=== PATIENT | male | born 1950 | race Caucasian/White ===

== ENCOUNTER 2018-10-09 23:32 | Observation (INO) | payer BC ==
[2018-10-09] MEDS ORDERED: ONDANSETRON HCL IV 4 MG/2 ML VIAL IVP ONE (23:35)
[2018-10-09] MEDS ORDERED: MORPHINE SULFATE 5 MG/ML VIAL IVP ONE (23:39)
[2018-10-09] MEDS ORDERED: 0.9 % SODIUM CHLORIDE 1000ML 1,000 ML IV SCH (23:45)
--- NOTE | 2018-10-09 23:45 | Emergency Department Record ---
History of Present Illness - General Chief Complaint: Abdominal Pain Stated Complaint: ABD PAIN Time Seen by Provider: 10/09/18 23:33 Source: Patient Mode of Arrival: Ambulatory Limitations: No limitations - History of Present Illness Initial Comments: 68 yo male presents to ED for evaluation of nausea and epigastric abdominal pain after drinking alcohol over the weekend. Patient reports pain radiation to the back. Patient reports history of intermittent pancreatitis due to alcohol use, s/p partial stomach/pancreas removal. Patient denies fevers, chills, or change in stools, last BM was this morning. Patient reports history of similar symptoms previously related to pancreatitis. MD Complaint: Abdominal pain Onset/Timin -: Hour(s) Location: Epigastric Radiation: Back Severity scale (1-10): 9 Quality: Aching Consistency: Constant Improves With: Nothing Worsens With: Nothing Associated Symptoms: Nausea - Related Data Previous Rx's Medication Instructions Recorded Hydrocodone/Acetaminophen [[place] 1 tab PO Q4HR PRN #30 tab 08/12/15 7.5mg/325mg] Allergies Allergy/AdvReac Type Severity Reaction Status Date / Time No Known Drug Allergies Allergy Verified 03/07/15 18:37 Review of Systems Constitutional: Denies: Chills, Fever, Malaise, Night sweats Eyes: Denies: Eye discharge, Eye pain ENT: Denies: Congestion, Ear pain, Epistaxis Respiratory: Denies: Cough, Dyspnea Cardiovascular: Denies: Chest pain, Dyspnea on exertion Endocrine: Denies: Fatigue, Heat or cold intolerance Gastrointestinal: Reports: Abdominal pain, Nausea. Denies: Constipation, Vomiting Genitourinary: Denies: Incontinence, Retention Musculoskeletal: Denies: Arthralgia, Back pain Skin: Denies: Bruising, Change in color Neurological: Denies: Abnormal gait, Confusion, Headache, Seizure Psychiatric: Denies: Anxiety Hematological/Lymphatic: Denies: Anemia, Blood Clots Past Medical History - SOCIAL HISTORY Smoking Status: Current every day smoker - RESPIRATORY Hx Respiratory Disorders: Yes Hx Bronchitis: Yes (had bronchitis Feb 2014-better now) - CARDIOVASCULAR Hx Cardio Disorders: No - NEURO Hx Neuro Disorders: No - GI Hx GI Disorders: Yes Hx Abdominal Pain: Yes (occasional, a"2-3 all the time") Hx Reflux: Yes Hx Nausea/Vomiting: Yes Hx Pancreatitis: Yes (last pancreatitis jan 2015) - Hx Genitourinary Disorders: Yes Comment:: testicular CA - ENDOCRINE Hx Endocrine Disorders: No - MUSCULOSKELETAL Hx Musculoskeletal Disorders: Yes - PSYCH Hx Psych Problems: Yes Hx Anxiety: Yes Hx Depression: Yes Comment:: pt denies depression at this time - HEMATOLOGY/ONCOLOGY Hx Hematology/Oncology Disorders: Yes Hx Cancer: Yes (right testicle) Hx Chemotherapy: No Hx Radiation Therapy: No Family Medical History Family Hx Comment (NOT TO BE USED IN PLACE OF ITEMS BELOW): mother of lung CA Hx Cancer: Mother Hx Dementia: Father Hx Depression: Father Hx Heart Disease: Grandparents Hx HTN: Grandparents Hx Stroke: Father Physical Exam - General General Appearance: Alert, Oriented x3, Cooperative, Other (Cachetic appearing on examination.) Limitations: No limitations - Head Head exam: Atraumatic, Normocephalic, Normal inspection Head exam detail: negative: Abrasion, Contusion, Bullard's sign, General tenderness, Hematoma, Laceration - Eye Eye exam: Normal appearance. negative: Conjunctival injection, Periorbital swelling, Periorbital tenderness, Scleral icterus - ENT Ear exam: negative: Auricular hematoma, Auricular trauma Nasal Exam: negative: Active bleeding, Discharge, Dried blood, Foreign body Mouth exam: negative: Drooling, Laceration, Muffled voice, Tongue elevation - Neck Neck exam: Normal inspection. negative: Meningismus, Tenderness - Respiratory Respiratory exam: Normal lung sounds bilaterally. negative: Rales, Respiratory distress, Rhonchi, Stridor - Cardiovascular Cardiovascular Exam: Regular rate, Normal rhythm, Normal heart sounds - GI/Abdominal GI/Abdominal exam: Soft, Tenderness (TTP epigastric, RUQ, LUQ on examination, no rebound or guarding symptoms are present.). negative: Rebound, Rigid - Rectal Rectal exam: Deferred - exam: Deferred - Extremities Extremities exam: negative: Pedal edema, Tenderness - Back Back exam: Denies: CVA tenderness (R), CVA tenderness (L) - Neurological Neurological exam: Alert, Normal gait, Oriented X3 - Psychiatric Psychiatric exam: Flat affect - Skin Skin exam: Normal color. negative: Abrasion Type of lesion: negative: abrasion Course - Reevaluation(s) Reevaluation #1: 10/10/18 00:54 Laboratory studies were reviewed and appear grossly unremarkable for an acute process except for: WBC 13.2 Lipase 111 Patient was updated on all results, continues to require analgesia for discomfort symptoms. History and examination appear c/w pancreatitis, CT imaging does not appear indicated based on my examination at this time. Will admit for observation and analgesia at this time. Reevaluation #2: 10/10/18 06:48 Case was discussed with Dr. Evans, will accept admission at this time. Medical Decision Making - Lab Data Result diagrams: 10/09/18 23:50 10/10/18 00:15 Disposition Disposition: Admit Clinical Impression: Pancreatitis Qualifiers: Chronicity: acute Pancreatitis type: alcohol induced Acute pancreatitis complication: unspecified Qualified Code(s): K85.20 - Alcohol induced acute pancreatitis without necrosis or infection Disposition: Still a Patient at [facility] Decision to Admit: Admit from ER Decision to Admit Date: 10/10/18 Decision to Admit Time: 00:56 Condition: (2) Stable Time of Disposition: 00:56 Quality - Quality Measures Quality Measures: N/A - Blood Pressure Screening Does Patient Have Any of the Following: No Blood Pressure Classification: Normal BP Reading Systolic Measurement: 118 Diastolic Measurement: 69 Screening for High Blood Pressure: < Normal BP, F/U Not Required > [G8783]
[2018-10-09 23:57] LABS: ABSOLUTE NEUTROPHIL COUNT 10.56; HEMATOCRIT 38.8 % (42.0-52.0); HEMOGLOBIN 13.2 gm/dl (14.0-18.0); MEAN CELL VOLUME 97.7 fl (81-97); MEAN CORPUSCULAR HEMOGLOBIN 33.2 pg (27-33); MEAN PLATELET VOLUME 8.6 fl (7.4-10.4); PLATELET COUNT 266 K/uL (130-400); RED BLOOD COUNT 3.97 M/uL (4.40-5.70); RED CELL DISTRIBUTION WIDTH 15.3 % (11.5-14.5); WHITE BLOOD COUNT W/O DIFF 13.2 K/uL (4.2-12.2)
[2018-10-10 00:18] LABS: ANISOCYTOSIS 1+; PLATELET ESTIMATE NORMAL (NORMAL)
[2018-10-10 00:35] LABS: BLOOD UREA NITROGEN 5 mg/dL (8-23)
[2018-10-10 00:36] LABS: CREATININE 0.3 mg/dL (0.7-1.2); EST GLOMERULAR FILTRATION RATE > 60 mL/min; LIPASE 111 U/L (13-60); TOTAL PROTEIN 5.9 g/dL (6.6-8.7)
[2018-10-10 00:38] LABS: GLUCOSE,RANDOM 121 mg/dL (74-109)
[2018-10-10 00:41] LABS: ALBUMIN 2.9 g/dL (4.0-5.0); ALT/SGPT 13 U/L (<41); AST/SGOT 25 U/L (10.0-50.0)
[2018-10-10 00:44] LABS: ALKALINE PHOSPHATASE 82 U/L (40-129)
[2018-10-10] MEDS ORDERED: HYDROMORPHONE HCL 2 MG/ML VIAL IVP ONE (00:53)
[2018-10-10] MEDS ORDERED: 0.9 % SODIUM CHLORIDE 1000ML 1,000 ML IV PRN (01:46)
[2018-10-10] MEDS ORDERED: ONDANSETRON HCL IV 4 MG/2 ML VIAL IVP PRN (01:46)
[2018-10-10] MEDS: HYDROMORPHONE HCL 2 MG/ML VIAL IV PRN ×3 (02:48→07:54)
[2018-10-10] MEDS ORDERED: RANITIDINE HCL 150 MG TABLET PO PRN (07:00)
--- NOTE | 2018-10-10 09:50 | Discharge Note ---
VTE H&P Assessment - Risk for VTE Risk for VTE: No Risk Level: Very Low Risk Assessment Date: 10/10/18 Risk Assessment Time: 09:46 VTE Orders Placed or Will Be Placed: No VTE Reason for No Prophylaxis: Not Indicated Discharge Medications - Discharge Medications Prescriptions: Hydrocodone/Acetaminophen [[place] 7.5mg/325mg] 1 tab PO Q4HR PRN #30 tab PRN Reason: Pain - General Ondansetron HCl [Zofran] 4 mg PO Q4HR #30 tablet Home Medications: Ambulatory Orders Lipase/Protease/Amylase [Dandre Dr 12,000 Units Capsule] 10 tab PO TID 09/21/13 [Last Taken 10/09/18] Metoclopramide HCl [Reglan] 10 mg PO ASDIR PRN 09/21/13 [Last Taken 10/09/18] Ranitidine HCl [Zantac] 150 mg PO BID PRN 09/21/13 [Last Taken 10/09/18] Hydrocodone/Acetaminophen [[place] 7.5mg/325mg] 1 tab PO Q4HR PRN #30 tab 10/10/18 [Last Taken Unknown] Ondansetron HCl [Zofran] 4 mg PO Q4HR #30 tablet 10/10/18 [Last Taken Unknown] Discharge Note - Date Date of Discharge Note: 10/10/18 Condition: (2) Stable Forms: Patient Portal Access
[2018-10-10] MEDS ORDERED: PROTEASE PO SCH (10:00)
[2018-10-10] MEDS ORDERED: LIPASE PO SCH (10:00)
[2018-10-10] MEDS ORDERED: AMYLASE PO SCH (10:00)
--- NOTE | 2018-10-10 14:52 | History and Physical Report ---
CHIEF COMPLAINT: Epigastric abdominal pain and nausea and history of chronic pancreatitis with acute pancreatitis flare-ups when drinking alcohol. HISTORY OF PRESENT ILLNESS: This 64-year-old male presented to the emergency department with epigastric abdominal pain and nausea. He states that his pancreatitis is flaring up. He drank 5-6 beers with dinner on the day of admission yesterday. He is complaining of right upper quadrant and left upper quadrant abdominal pain and epigastric abdominal pain. No vomiting. PAST MEDICAL HISTORY: Chronic pancreatitis, multiple episodes of acute pancreatitis, gastroesophageal reflux disease, chronic obstructive pulmonary disease, tobacco use disorder, alcohol abuse in the past and some currently but he denies drinking excessively. PAST SURGICAL HISTORY: History of testicular cancer, recent testicular biopsy done by Dr. Quinteros, negative for cancer. The right testicle was removed in 1983. He had a Whipple procedure in 2002 at [facility]. At that time, the lymph node biopsy was negative for cancer. He had a scrotal surgery by Dr. Quinteros about 4 years ago in 2014. MEDICATIONS: 1. Zantac 150 mg b.i.d. 2. Reglan 10 mg q.6 h. p.r.n. 3. He uses pancreatic enzymes, 8 tablets before meals and 4 for snacks. 4. Zofran 4 mg q.4 h. 5. [place] 7.5 p.r.n. pain. ALLERGIES: No known drug allergies. FAMILY/PSYCHOSOCIAL HISTORY: His mother of lung cancer. She was a cigarette smoker. Otherwise unremarkable history. REVIEW OF SYSTEMS: HEENT: No upper respiratory infection symptoms, cough, cold, or congestion. Cardiovascular: No chest pain, palpitations, or arrhythmia. Respiratory: He has chronic obstructive pulmonary disease and still smokes. Gastrointestinal: See Chief Complaint. He has epigastric pain, upper abdominal pain, and nausea. He states no significant diarrhea. Genitourinary: No dysuria, hematuria, frequency, or burning on urination. Musculoskeletal: No joint or bone abnormalities. He is very skinny. He has nutritional issues because of his chronic pancreatitis and malabsorption. Neurological: No CVA, paralysis, or paresthesias. Endocrine: No diabetes or thyroid disease. Integument: No rash, ulcers, change in moles, or yellow skin. PHYSICAL EXAMINATION: VITALS: Height 5 feet 9 inches, weight 92 pounds; I am not exactly sure what his weight is. Temperature 98.0, pulse 73, blood pressure 118/69, respiratory rate 16, pulse ox 92% on room air. HEENT: Pupils are equal, round, and reactive to light and accommodation. Extraocular muscles are intact. Throat is clear. Nose is clear. Tympanic membranes are moore. NECK: Supple. No jugular venous distention. No hepatojugular reflux. No carotid bruits. Thyroid is smooth. CARDIOVASCULAR: Regular rate and rhythm without murmurs, clicks, rubs, or gallops. RESPIRATORY: Clear to auscultation and percussion. ABDOMEN: Tender in the epigastric area but much better than he was last night. No masses palpated. EXTREMITIES: No pitting edema. No cyanosis, no clubbing. Full range of motion. Peripheral pulses are good. BREASTS: Normal male breasts. RECTAL: Exam deferred. GENITALIA: Normal male genitalia except he is missing one testicle. NEUROLOGIC: Cranial nerves II-XII intact. No gross defects. Sensation normal, strength normal. Deep tendon reflexes equal bilaterally with Babinski negative. MENTAL STATUS: Alert and oriented x3. IMPRESSION: 1. Acute pancreatitis. 2. Chronic pancreatitis. 3. Chronic obstructive pulmonary disease. Still smokes. 4. Pancreatic insufficiency requiring pancreatic enzymes. 5. Gastroesophageal reflux disease. PLAN: Discharge. Patient is feeling better. We will send him home with [place] and clear liquids and follow up with me in the office soon on Monday. ROSSY
--- NOTE | 2018-10-10 14:52 | Discharge Summary ---
DISCHARGE DIAGNOSES: 1. Acute pancreatitis. 2. Chronic pancreatitis. 3. Gastroesophageal reflux disease. 4. Chronic obstructive pulmonary disease. Smokes cigarettes. 5. Pancreatic insufficiency requiring pancreatic enzymes. ATTENDING PHYSICIAN: Jean Marie Evans DO REASON FOR HOSPITALIZATION: Epigastric abdominal pain and nausea, history of pancreatitis and lipase was only 111. The patient was seen in the ER by Dr. Garrido, admitted to the hospital for observation. WBC was 13.200, hemoglobin 13.2, potassium 5.1, sodium 132, lipase 111, BUN 5, creatinine 0.3. No ABG done. THERAPY PROVIDED: Given Dilaudid IV and fluids. He was feeling much better and wants to go home. HOSPITAL COURSE: Improved but guarded because of his continuing use of alcohol. CONDITION ON DISCHARGE: Improved. DISCHARGE INSTRUCTIONS: Follow up with Dr. Evans on Monday morning. clear liquid diet and advanced as tolerated. [place] 7.5 q.6 h. p.r.n. pain, 30 pills dispensed. Zofran 4 mg q.4 h. p.r.n. Continue his home medications. MTDD
== END 2018-10-10 10:45 | disposition home or self-care (01) ==
LOC: ER 23:32 → MEDSURG 10-10 01:43
PROVIDERS: ADMIT Emergency Medicine; ATTEND Emergency Medicine
DX: K85.20 Alcohol induced acute pancreatitis without necrosis or infection (principal); R10.11 Right upper quadrant pain; R11.0 Nausea; J44.9 Chronic obstructive pulmonary disease, unspecified; F17.210 Nicotine dependence, cigarettes, uncomplicated; K21.9 Gastro-esophageal reflux disease without esophagitis; Z90.411 Acquired partial absence of pancreas; Z90.3 Acquired absence of stomach [part of]; Z85.47 Personal history of malignant neoplasm of testis
CPT/HCPCS: 80053; 83690; 85025; 85027; 96374; 96375; 99220; 99285; J2405; J7030

== ENCOUNTER 2018-12-04 09:37 | Emergency (ER) | payer BC ==
--- NOTE | 2018-12-04 09:44 | Emergency Department Record ---
History of Present Illness - General Stated Complaint: PANCREATITIS Time Seen by Provider: 12/04/18 09:38 Source: Patient Mode of Arrival: Ambulatory Limitations: No limitations - History of Present Illness Initial Comments: 68 yo male presents with upper abdominal pain for 2 days. He has a history of chronic pancreatitis from long standing alcohol use. He admits to recent al cohol use that was followed by the upper abdominal pain. He had dry heaves with nausea. No fever. No blood in the vomit. No diarrhea. No bloody stools. His PCP is out of town so he presented to the ED. No cough, or chest pain. He has a history of COPD as well. MD Complaint: Abdominal pain -: Days(s) (2) Location: Epigastric Radiation: Back, Epigastric Migration to: Epigastric Severity: Moderate Quality: Aching, Sharp Consistency: Intermittent Improves With: Nothing Worsens With: Eating, Other (alcohol) Context: Other (Alcohol abuse) Associated Symptoms: Anorexia - Related Data Previous Rx's Medication Instructions Recorded Hydrocodone/Acetaminophen [[place] 1 each PO Q6H #12 tablet 12/04/18 7.5-325 Tablet] Ondansetron [Zofran Odt] 4 mg PO Q8H #15 tab.rapdis 12/04/18 Allergies Allergy/AdvReac Type Severity Reaction Status Date / Time No Known Drug Allergies Allergy Verified 12/04/18 09:42 Review of Systems Constitutional: Denies: Chills, Fever, Malaise, Weakness Eyes: Denies: Eye discharge ENT: Denies: Congestion, Throat pain Respiratory: Denies: Cough, Dyspnea Cardiovascular: Denies: Chest pain, Palpitations, Syncope Endocrine: Denies: Fatigue, Polydipsia, Polyuria Gastrointestinal: Reports: Abdominal pain, Nausea. Denies: Diarrhea, Vomiting Genitourinary: Denies: Dysuria, Frequency, Hematuria Musculoskeletal: Denies: Arthralgia, Back pain, Myalgia Skin: Denies: Bruising, Change in color, Rash Neurological: Denies: Headache Psychiatric: Denies: Anxiety Hematological/Lymphatic: Denies: Easy bleeding, Easy bruising Past Medical History - SOCIAL HISTORY Smoking Status: Current every day smoker - RESPIRATORY Hx Respiratory Disorders: Yes Hx Bronchitis: Yes (had bronchitis Feb 2014-better now) - CARDIOVASCULAR Hx Cardio Disorders: No - NEURO Hx Neuro Disorders: No - GI Hx GI Disorders: Yes Hx Abdominal Pain: Yes (occasional, a"2-3 all the time") Hx Reflux: Yes Hx Nausea/Vomiting: Yes Hx Pancreatitis: Yes (last pancreatitis jan 2015) - Hx Genitourinary Disorders: Yes Comment:: testicular CA - ENDOCRINE Hx Endocrine Disorders: No - MUSCULOSKELETAL Hx Musculoskeletal Disorders: Yes - PSYCH Hx Psych Problems: Yes Hx Anxiety: Yes Hx Depression: Yes Comment:: pt denies depression at this time - HEMATOLOGY/ONCOLOGY Hx Hematology/Oncology Disorders: Yes Hx Cancer: Yes (right testicle) Hx Chemotherapy: No Hx Radiation Therapy: No Family Medical History Family Hx Comment (NOT TO BE USED IN PLACE OF ITEMS BELOW): mother of lung CA Hx Cancer: Mother Hx Dementia: Father Hx Depression: Father Hx Heart Disease: Grandparents Hx HTN: Grandparents Hx Stroke: Father Physical Exam - General General Appearance: Alert, Oriented x3, Cooperative, No acute distress Limitations: No limitations - Head Head exam: Atraumatic, Normal inspection - Eye Eye exam: Normal appearance, PERRL. negative: Conjunctival injection, Scleral icterus - ENT ENT exam: Normal exam, Mucous membranes moist Ear exam: Normal external inspection Nasal Exam: Normal inspection Mouth exam: Normal external inspection - Neck Neck exam: Normal inspection - Respiratory Respiratory exam: Normal lung sounds bilaterally, Decreased breath sounds. negative: Accessory muscle use, Prolonged expiratory, Respiratory distress, Rhonchi, Stridor, Wheezes - Cardiovascular Cardiovascular Exam: Regular rate, Normal rhythm, Normal heart sounds - GI/Abdominal GI/Abdominal exam: Soft, Tenderness (soft flat abdomen, tender epigstric more to the right than left). negative: Distended, Guarding, Rebound, Rigid - Rectal Rectal exam: Deferred - exam: Deferred - Extremities Extremities exam: Normal inspection - Back Back exam: Denies: CVA tenderness (R), CVA tenderness (L) - Neurological Neurological exam: Alert, Oriented X3 - Psychiatric Psychiatric exam: Normal affect, Normal mood Course - Reevaluation(s) Reevaluation #1: 12/04/18 10:19 No significant lab abnormalities on the CBC or BMP The Lipase is normal at this time. LFT normal The labs were discussed with the patient He states he has dealt with these symptoms many years. His strong preference is for DC home. We discussed home care, dietary restrictions, no alcohol and reasons to return to the ED His PCP is out of town. He will be provided a limited number or Lamont. The prescription does not exceed three days. MAPS was reviewed at the time of the prescripts The topics of abuse, addiction, over dose, dangers of multiple medications, disposal, and illegal distribution were discussed with the patient. The patient verbalized understanding of the risks of the medication being provided 12/04/18 10:24 Medical Decision Making - Lab Data Result diagrams: 12/04/18 09:55 12/04/18 09:55 Disposition Disposition: Discharge Clinical Impression: Chronic pancreatitis Abdominal pain Qualifiers: Abdominal location: epigastric Qualified Code(s): R10.13 - Epigastric pain Disposition: Home, Self-Care Condition: (2) Stable Instructions: Pancreatitis (ED) Additional Instructions: Review this ER visit and the tests performed with your family doctor Call your doctor for the next available follow up appointment Return to the ER for a recheck if worse, any new concerns or questions Take the prescriptions provided as directed Prescriptions: Hydrocodone/Acetaminophen [[place] 7.5-325 Tablet] 1 each PO Q6H #12 tablet Ondansetron [Zofran Odt] 4 mg PO Q8H #15 tab.rapdis Time of Disposition: 10:32 Quality - Quality Measures Quality Measures: N/A - Blood Pressure Screening Does Patient Have Any of the Following: No Blood Pressure Classification: Pre-Hypertensive BP Reading Systolic Measurement: 124 Diastolic Measurement: 76 Screening for High Blood Pressure: < Pre-Hypertensive BP, F/U Documented > [G8950] Pre-Hypertensive Follow-up Interventions: Referral to alternative/primary care provider.
[2018-12-04 10:05] LABS: ABSOLUTE NEUTROPHIL COUNT 8.91; HEMATOCRIT 39.2 % (42.0-52.0); HEMOGLOBIN 12.7 gm/dl (14.0-18.0); MEAN CELL VOLUME 103.7 fl (81-97); MEAN CORPUSCULAR HGB CONC 32.4 g/dl (32-36); PLATELET COUNT 167 K/uL (130-400); RED BLOOD COUNT 3.78 M/uL (4.40-5.70); RED CELL DISTRIBUTION WIDTH 16.2 % (11.5-14.5); WHITE BLOOD COUNT W/O DIFF 9.8 K/uL (4.2-12.2)
[2018-12-04] MEDS: ONDANSETRON HCL IV 4 MG/2 ML VIAL IVP ONE (10:05)
[2018-12-04] MEDS: HYDROMORPHONE HCL 2 MG/ML VIAL IVP ONE (10:05)
[2018-12-04] MEDS: 0.9 % SODIUM CHLORIDE 1,000 ML BAG IV ONE (10:06)
[2018-12-04 10:07] LABS: MEAN CORPUSCULAR HEMOGLOBIN 33.5 pg (27-33)
[2018-12-04 10:17] LABS: BLOOD UREA NITROGEN 8 mg/dL (8-23); CREATININE 0.3 mg/dL (0.7-1.2); EST GLOMERULAR FILTRATION RATE > 60 mL/min; LIPASE 19 U/L (13-60); TOTAL PROTEIN 6.2 g/dL (6.6-8.7)
[2018-12-04 10:19] LABS: GLUCOSE,RANDOM 111 mg/dL (74-109)
[2018-12-04 10:22] LABS: ALB/GLOB RATIO 0.7 (1.1-1.8); ALBUMIN 2.5 g/dL (4.0-5.0); ALT/SGPT 13 U/L (<41); AST/SGOT 30 U/L (10.0-50.0)
[2018-12-04 11:05] LABS: ALKALINE PHOSPHATASE 117 U/L (40-129)
== END 2018-12-04 11:00 | disposition home or self-care (01) ==
LOC: ER 09:37
DX: K86.1 Other chronic pancreatitis (principal); J44.9 Chronic obstructive pulmonary disease, unspecified; F17.210 Nicotine dependence, cigarettes, uncomplicated; R11.0 Nausea
CPT/HCPCS: 99284 ×2; 96374; 96375; 83690; 80053; 85027; J2405; J1170; J7030

== ENCOUNTER 2019-01-03 21:32 | Inpatient (IN) | payer BC ==
[2019-01-03] MEDS ORDERED: IPRATROPIUM/ALBUTEROL (0.5MG/3MG) NEB INH ONE (21:33)
[2019-01-03] MEDS ORDERED: METHYLPREDNISOLONE PF 125MG/VIAL IVP ONE (21:36)
--- NOTE | 2019-01-03 21:41 | Emergency Department Record ---
History of Present Illness - General Chief Complaint: Shortness of breath Stated Complaint: KACEY Time Seen by Provider: 01/03/19 21:33 Source: Patient Mode of Arrival: Wheelchair Limitations: No limitations - History of Present Illness Initial Comments: 68 yo male presents to ED for evaluation of difficulty in breathing for the past 3 days. Patient denies fevers, chills, or cough symptoms, reports history of COPD with similar symptoms. Patient denies chest discomfort or pain symptoms, does report worsening generalized weakness symptoms as well. MD Complaint: Shortness of breath Onset/Timin -: Days(s) Severity: Moderate Consistency: Constant Improves With: Nothing Worsens With: Exertion Known History Of: COPD Associated Symptoms: Denies other symptoms Treatments Prior to Arrival: None - Related Data Home Oxygen Therapy: No Previous Rx's Medication Instructions Recorded Hydrocodone/Acetaminophen [[place] 1 each PO Q6H #12 tablet 12/04/18 7.5-325 Tablet] Ondansetron [Zofran Odt] 4 mg PO Q8H #15 tab.rapdis 12/04/18 Allergies Allergy/AdvReac Type Severity Reaction Status Date / Time No Known Drug Allergies Allergy Verified 12/04/18 09:42 Review of Systems Constitutional: Denies: Chills, Fever, Malaise, Night sweats Eyes: Denies: Eye discharge, Eye pain ENT: Denies: Congestion, Ear pain, Epistaxis Respiratory: Reports: Dyspnea. Denies: Cough, Hemoptysis Cardiovascular: Reports: Dyspnea on exertion. Denies: Chest pain, Edema Endocrine: Denies: Fatigue, Heat or cold intolerance Gastrointestinal: Denies: Abdominal pain, Nausea, Vomiting Genitourinary: Denies: Incontinence, Retention Musculoskeletal: Denies: Arthralgia, Back pain Skin: Denies: Bruising, Change in color Neurological: Denies: Abnormal gait, Confusion, Headache, Seizure Psychiatric: Denies: Anxiety Hematological/Lymphatic: Denies: Anemia, Blood Clots Past Medical History - SOCIAL HISTORY Smoking Status: Current every day smoker - RESPIRATORY Hx Respiratory Disorders: Yes Hx Bronchitis: Yes (had bronchitis Feb 2014-better now) - CARDIOVASCULAR Hx Cardio Disorders: No - NEURO Hx Neuro Disorders: No - GI Hx GI Disorders: Yes Hx Abdominal Pain: Yes (occasional, a"2-3 all the time") Hx Reflux: Yes Hx Nausea/Vomiting: Yes Hx Pancreatitis: Yes (last pancreatitis jan 2015) - Hx Genitourinary Disorders: Yes Comment:: testicular CA - ENDOCRINE Hx Endocrine Disorders: No - MUSCULOSKELETAL Hx Musculoskeletal Disorders: Yes - PSYCH Hx Psych Problems: Yes Hx Anxiety: Yes Hx Depression: Yes Comment:: pt denies depression at this time - HEMATOLOGY/ONCOLOGY Hx Hematology/Oncology Disorders: Yes Hx Cancer: Yes (right testicle) Hx Chemotherapy: No Hx Radiation Therapy: No Family Medical History Family Hx Comment (NOT TO BE USED IN PLACE OF ITEMS BELOW): mother of lung CA Hx Cancer: Mother Hx Dementia: Father Hx Depression: Father Hx Heart Disease: Grandparents Hx HTN: Grandparents Hx Stroke: Father Physical Exam - General General Appearance: Alert, Oriented x3, Cooperative, Other (Cachetic appearing) Limitations: No limitations - Head Head exam: Atraumatic, Normocephalic, Normal inspection Head exam detail: negative: Abrasion, Contusion, Bullard's sign, General tenderness, Hematoma, Laceration - Eye Eye exam: Normal appearance. negative: Conjunctival injection, Periorbital swelling, Periorbital tenderness, Scleral icterus - ENT Ear exam: negative: Auricular hematoma, Auricular trauma Nasal Exam: negative: Active bleeding, Discharge, Dried blood, Foreign body Mouth exam: negative: Drooling, Laceration, Muffled voice, Tongue elevation - Neck Neck exam: Normal inspection. negative: Meningismus, Tenderness - Respiratory Respiratory exam: Decreased breath sounds. negative: Rales, Respiratory distress, Rhonchi, Stridor - Cardiovascular Cardiovascular Exam: Regular rate, Normal rhythm, Normal heart sounds - GI/Abdominal GI/Abdominal exam: Soft. negative: Rebound, Rigid, Tenderness - Rectal Rectal exam: Deferred - exam: Deferred - Extremities Extremities exam: Normal inspection. negative: Pedal edema, Tenderness - Back Back exam: Denies: CVA tenderness (R), CVA tenderness (L) - Neurological Neurological exam: Alert, Normal gait, Oriented X3 - Psychiatric Psychiatric exam: Normal affect, Normal mood - Skin Skin exam: Normal color. negative: Abrasion Type of lesion: negative: abrasion Course - Reevaluation(s) Reevaluation #1: 01/03/19 21:56 EKG: NSR Normal axis, normal intervals No acute ST-T wave change present. Reevaluation #2: 01/03/19 22:15 Patient was reassessed following duoneb, objectively improved BS, reports improvement subjectively as well. Patient is currently on 4L NC currently to maintain oxygen saturations in the upper 80's. Patient is going for CXR at this time. Reevaluation #3: 01/03/19 22:35 Laboratory studies were reviewed and appear grossly unremarkable for an acute process. Patient is currently in radiology for CXR. Reevaluation #4: 01/03/19 22:38 CXR: Findings c/w COPD, no acute process Will admit for further pulmonary treatment and evaluation. Reevaluation #5: 01/04/19 06:47 Case was discussed with Dr. Evans, will accept admission at this time. Medical Decision Making - Lab Data Result diagrams: 01/03/19 22:05 01/03/19 22:05 Disposition Disposition: Admit Clinical Impression: Hypoxia COPD (chronic obstructive pulmonary disease) Qualifiers: COPD type: unspecified COPD Qualified Code(s): J44.9 - Chronic obstructive pu lmonary disease, unspecified Disposition: Still a Patient at [facility] Decision to Admit: Admit from ER Decision to Admit Date: 01/03/19 Decision to Admit Time: 22:40 Condition: (2) Stable Time of Disposition: 22:40 Quality - Quality Measures Quality Measures: N/A - Blood Pressure Screening Does Patient Have Any of the Following: No Blood Pressure Classification: Pre-Hypertensive BP Reading Systolic Measurement: 119 Diastolic Measurement: 87 Screening for High Blood Pressure: < Pre-Hypertensive BP, F/U Documented > [[id number]] Pre-Hypertensive Follow-up Interventions: Referral to alternative/primary care provider.
[2019-01-03 22:15] LABS: ABSOLUTE NEUTROPHIL COUNT 10.09; BASO % 0.1 % (0-6); HEMOGLOBIN 14.1 gm/dl (14.0-18.0); LYMPH % 4.8 % (16-45); MEAN CELL VOLUME 105.3 fl (81-97); MEAN CORPUSCULAR HEMOGLOBIN 33.7 pg (27-33); MEAN PLATELET VOLUME 8.7 fl (7.4-10.4); MONO % 6.2 % (0-9); PLATELET COUNT 205 K/uL (130-400); RED BLOOD COUNT 4.18 M/uL (4.40-5.70); RED CELL DISTRIBUTION WIDTH 15.6 % (11.5-14.5); WHITE BLOOD COUNT W/O DIFF 11.4 K/uL (4.2-12.2)
[2019-01-03 22:28] LABS: BLOOD UREA NITROGEN 16 mg/dL (8-23); CREATININE 0.4 mg/dL (0.7-1.2); EST GLOMERULAR FILTRATION RATE > 60 mL/min
[2019-01-03 22:29] LABS: TOTAL PROTEIN 6.4 g/dL (6.6-8.7)
[2019-01-03 22:31] LABS: GLUCOSE,RANDOM 101 mg/dL (74-109)
[2019-01-03 22:33] LABS: ALB/GLOB RATIO 0.7 (1.1-1.8); ALBUMIN 2.6 g/dL (4.0-5.0); ALT/SGPT 14 U/L (<41); AST/SGOT 25 U/L (10.0-50.0)
[2019-01-03] MEDS ORDERED: FENTANYL PF 100MCG/2ML VIAL IVP ONE (22:39)
--- NOTE | 2019-01-03 22:48 | RADIOLOGY REPORT ---
EXAMINATION: CHEST 2 VIEWS EXAM DATE: 01/03/2019 10:41 PM TECHNIQUE: Frontal and lateral views of the chest INDICATION: KACEY COMPARISON: None FINDINGS: The cardiomediastinal silhouette is normal. There are calcified mediastinal and hilar lymph nodes. The lungs are hyperinflated. On the lateral view, there is ill-defined increased density in the basil ar region. Laterality is not confirmed on the frontal view. No pneumothorax or pleural effusion. The bones are unremarkable. IMPRESSION: Possible lower lobe pneumonia. Dictated by: Brandon Simpson MD on 01/03/2019 10:42 PM. .
[2019-01-03] MEDS ORDERED: ALBUTEROL SULFATE (0.083%) 2.5 MG/3 ML NEB INH PRN (23:09)
[2019-01-03] MEDS ORDERED: 0.9 % SODIUM CHLORIDE 1000ML 1,000 ML IV ONE (23:09)
[2019-01-03] MEDS: ONDANSETRON 4 MG ODT TABLET PO SCH (23:55)
[2019-01-03] MEDS: HYDROCODONE/APAP 7.5/325MG TABLET PO SCH (23:55)
[2019-01-04] MEDS: IPRATROPIUM/ALBUTEROL (0.5MG/3MG) NEB INH SCH ×5 (06:28→22:48)
[2019-01-04] MEDS: HYDROCODONE/APAP 7.5/325MG TABLET PO SCH (06:43)
[2019-01-04] MEDS ORDERED: CEFTRIAXONE SODIUM 2 GM in 0.9 % SODIUM CHLORIDE 100ML 100 ML IVPB SCH (07:15)
[2019-01-04] MEDS ORDERED: CEFTRIAXONE SODIUM 2 GM in 0.9 % SODIUM CHLORIDE 100ML 100 ML IVPB ONE (08:00)
[2019-01-04] MEDS: ONDANSETRON 4 MG ODT TABLET PO SCH ×2 (08:27→14:44)
[2019-01-04] MEDS ORDERED: METHYLPREDNISOLONE PF 125MG/VIAL IVP SCH (10:00)
[2019-01-04] MEDS ORDERED: MUPIROCIN OINT 22 GM TUBE TOP PRN (10:12)
[2019-01-04] MEDS ORDERED: CREON 10 PO PRN ×2 (10:22→10:30)
[2019-01-04] MEDS: METHYLPREDNISOLONE PF 125MG/VIAL IVP SCH ×3 (10:56→18:00)
[2019-01-04] MEDS: ENOXAPARIN 40 MG/0.4 ML SYR SQ SCH (10:56)
[2019-01-04] MEDS: AZITHROMYCIN 500 MG TABLET PO SCH (10:56)
[2019-01-04 10:57] LABS: ARTERIAL BLOOD GAS BASE EXCESS 3.4 mmol/L (-2 - 3); ARTERIAL BLOOD GAS HCO3 27.7 mmol/L (18-23); ARTERIAL BLOOD GAS PCO2 44.6 mmHg (35-48); ARTERIAL BLOOD GAS pH 7.41 (7.35-7.45)
[2019-01-04 10:59] LABS: ALLEN TEST PASS
[2019-01-04] MEDS: HYDROCODONE/APAP 5/325MG TABLET PO PRN ×2 (11:00→16:58)
[2019-01-04] MEDS ORDERED: FLU VAC QS 2019-20 (INPT, 6MO+) 60MCG/0.5ML IM ONE (11:15)
[2019-01-04] MEDS ORDERED: 0.9 % SODIUM CHLORIDE 500ML 250 ML IV SCH (11:30)
[2019-01-04] MEDS: CREON 10 PO SCH ×2 (11:44→16:56)
[2019-01-04 14:13] LABS: ALKALINE PHOSPHATASE 141 U/L (40-129)
--- NOTE | 2019-01-04 16:12 | History & Physical ---
History of Present Illness - Date of Service Date of Service for History & Physical: 01/04/19 - History of Present Illness Admitting Diagnosis: COPD exacerbation. Hypoxia. Cachexia. pneumonia bilateral lower lungs. cellulitis of left lower leg. PAD left leg Travel Screening - Travel/Exposure Within Last 30 Days Have you traveled within the last 30 days?: No - Travel/Exposure Within Last Year Have you traveled outside the [place] in the last year?: No - Additonal Travel Details Have you been exposed to anyone with a communicable illness?: No - Travel Symptoms Symptom Screening: Weakness Review of Systems Constitutional: Denies: Chills, Fever, Malaise, Night sweats Eyes: Denies: Eye discharge, Eye pain ENT: Denies: Congestion, Ear pain, Epistaxis Respiratory: Reports: Dyspnea. Denies: Cough, Hemoptysis Cardiovascular: Reports: Dyspnea on exertion. Denies: Chest pain, Edema Endocrine: Denies: Fatigue, Heat or cold intolerance Gastrointestinal: Denies: Abdominal pain, Nausea, Vomiting Genitourinary: Denies: Incontinence, Retention Musculoskeletal: Denies: Arthralgia, Back pain Skin: Denies: Bruising, Change in color Neurological: Denies: Abnormal gait, Confusion, Headache, Seizure Psychiatric: Denies: Anxiety Hematological/Lymphatic: Denies: Anemia, Blood Clots Past Medical History - SOCIAL HISTORY Smoking Status: Current every day smoker - RESPIRATORY Hx Respiratory Disorders: Yes Hx Bronchitis: Yes (had bronchitis Feb 2014-better now) - CARDIOVASCULAR Hx Cardio Disorders: No - NEURO Hx Neuro Disorders: No - GI Hx GI Disorders: Yes Hx Abdominal Pain: Yes (occasional, a"2-3 all the time") Hx Reflux: Yes Hx Nausea/Vomiting: Yes Hx Pancreatitis: Yes (last pancreatitis jan 2015) - Hx Genitourinary Disorders: Yes Comment:: testicular CA - ENDOCRINE Hx Endocrine Disorders: No - MUSCULOSKELETAL Hx Musculoskeletal Disorders: Yes - PSYCH Hx Psych Problems: Yes Hx Anxiety: Yes Hx Depression: Yes Comment:: pt denies depression at this time - HEMATOLOGY/ONCOLOGY Hx Hematology/Oncology Disorders: Yes Hx Cancer: Yes (right testicle) Hx Chemotherapy: No Hx Radiation Therapy: No Family Medical History Family Hx Comment (NOT TO BE USED IN PLACE OF ITEMS BELOW): mother of lung CA Hx Cancer: Mother Hx Dementia: Father Hx Depression: Father Hx Heart Disease: Grandparents Hx HTN: Grandparents Hx Stroke: Father H&P Meds/Allergies - Allergies Allergies: Allergies Allergy/AdvReac Type Severity Reaction Status Date / Time No Known Drug Allergies Allergy Verified 12/04/18 09:42 - Home Medications Previous Rx's Medication Instructions Recorded Hydrocodone/Acetaminophen [[place] 1 each PO Q6H #12 tablet 12/04/18 7.5-325 Tablet] Ondansetron [Zofran Odt] 4 mg PO Q8H #15 tab.rapdis 12/04/18 - Active Medications Active Medications: Current Medications Hydrocodone Bitart/Acetaminophen ([place] 5mg/325mg) 1 each PO Q6H PRN PRN Reason: PAIN - SEVERE (8-10) Last Admin: 01/04/19 11:00 Dose: 1 each Documented by: Albuterol Sulfate (Albuterol Sulfate) 2.5 mg INH RESP.Q2H PRN PRN Reason: DIFFICULTY IN BREATHING Albuterol/Ipratropium (Duoneb) 3 ml INH RESP.Q4H.[facility] Last Admin: 01/04/19 14:02 Dose: 3 ml Documented by: Azithromycin (Zithromax) 500 mg PO DAILY [facility] Last Admin: 01/04/19 10:56 Dose: 500 mg Documented by: Enoxaparin Sodium (Lovenox) 40 mg SQ DAILY [facility] Last Admin: 01/04/19 10:56 Dose: 40 mg Documented by: Ceftriaxone Sodium 1 gm/ (Sodium Chloride) 100 mls @ 200 mls/hr IVPB 0800,2000 [facility] Stop: 01/09/19 20:01 Sodium Chloride () 250 mls @ 0 mls/hr IV .Q0M [facility] Methylprednisolone Sodium Succinate (Solu-Medrol) 60 mg IVP Q8H [facility] Last Admin: 01/04/19 10:56 Dose: 60 mg Documented by: Mupirocin (Bactroban) 22 gm TOP BID PRN PRN Reason: COMPOUND Last Admin: 01/04/19 11:01 Dose: 22 gm Documented by: Ondansetron HCl (Zofran Odt) 4 mg PO Q8H [facility] Last Admin: 01/04/19 14:44 Dose: 4 mg Documented by: Dandre 10 8 each PO 0700,1100,1600 [facility] Last Admin: 01/04/19 11:44 Dose: 8 each Documented by: Cresiddhartha 10 4 each PO TID PRN PRN Reason: GI UPSET Ranitidine HCl (Zantac) 150 mg PO BID PRN PRN Reason: Heartburn Physical Exam - Vital Signs Vital Signs: Vital Signs - Last 24 Hrs Temp Pulse Pulse Resp BP BP BP 01/04/19 14:02 91 H 16 01/04/19 11:09 98.4 F 90 14 87/51 87/51 01/04/19 10:27 16 01/04/19 09:47 97 H 20 01/04/19 08:32 16 01/04/19 08:00 98.0 F 94 H 16 97/64 01/04/19 06:29 94 H 18 01/04/19 04:00 97.6 F 93 H 18 110/65 01/03/19 23:21 86 20 134/80 01/03/19 23:18 18 01/03/19 21:53 90 20 01/03/19 21:37 101 H 24 119/87 01/03/19 21:34 119 H 26 H 119/87 Pulse Ox 01/04/19 14:02 99 01/04/19 11:09 91 L 01/04/19 10:27 92 L 01/04/19 09:47 92 L 01/04/19 08:32 01/04/19 08:00 94 L 01/04/19 06:29 84 L 01/04/19 04:00 95 01/03/19 23:21 94 L 01/03/19 23:18 01/03/19 21:53 94 L 01/03/19 21:37 75 L 01/03/19 21:34 - General General Appearance: Alert, Oriented x3, Cooperative, Mild distress, Other (C achetic appearing) Limitations: No limitations - Head Head exam: Atraumatic, Normocephalic, Normal inspection Head exam detail: negative: Abrasion, Contusion, Bullard's sign, General tenderness, Hematoma, Laceration - Eye Eye exam: Normal appearance. negative: Conjunctival injection, Periorbital swelling, Periorbital tenderness, Scleral icterus - ENT Ear exam: negative: Auricular hematoma, Auricular trauma Nasal Exam: negative: Active bleeding, Discharge, Dried blood, Foreign body Mouth exam: negative: Drooling, Laceration, Muffled voice, Tongue elevation - Neck Neck exam: Normal inspection. negative: Meningismus, Tenderness - Respiratory Respiratory exam: Decreased breath sounds. negative: Rales, Respiratory distress, Rhonchi, Stridor - Cardiovascular Cardiovascular Exam: Regular rate, Normal rhythm, Normal heart sounds - GI/Abdominal GI/Abdominal exam: Soft. negative: Rebound, Rigid, Tenderness - Rectal Rectal exam: Deferred - exam: Deferred - Extremities Extremities exam: Normal inspection. negative: Pedal edema, Tenderness - Back Back exam: Denies: CVA tenderness (R), CVA tenderness (L) - Neurological Neurological exam: Alert, Normal gait, Oriented X3 - Psychiatric Psychiatric exam: Normal affect, Normal mood - Skin Skin exam: Normal color. negative: Abrasion Type of lesion: negative: abrasion Results - Labs Result Diagrams: 01/03/19 22:05 01/03/19 22:05 Labs Last 24 Hours: Laboratory Results - last 24 hr 01/03/19 01/03/19 01/04/19 22:05 22:05 10:48 WBC 11.4 RBC 4.18 L Hgb 14.1 Hct 44.0 MCV 105.3 H MCH 33.7 H MCHC 32.0 RDW 15.6 H Plt Count 205 MPV 8.7 Neutrophils % 92.0 H Band Neutrophils % 2.0 Lymphocytes % 4.8 L Monocytes % 6.2 Eosinophils % 0.0 Basophils % 0.1 Absolute Neutrophils 10.09 Lymphocytes 3.0 L Monocytes 3.0 Puncture Site Right wrist pCO2 44.6 pO2 Not Reportable HCO3 27.7 H Oxyhemoglobin Not Reportable ABG pH 7.41 ABG O2 Saturation Not Reportable ABG Base Excess 3.4 H Oswald Test Pass Carboxyhemoglobin Not Reportable Methemoglobin Not Reportable Actual Respiration Rate 16.0 FiO2 92.0 Sodium 129 L Potassium 4.7 H Chloride 93 L Carbon Dioxide 21.0 L Anion Gap 15.0 BUN 16 Creatinine 0.4 L Estimated GFR > 60 Random Glucose 101 Calcium 8.8 Total Bilirubin 0.30 AST 25 ALT 14 Alkaline Phosphatase 141 H Total Protein 6.4 L Albumin 2.6 L Globulin 3.8 Albumin/Globulin Ratio 0.7 L VTE H&P Assessment - Risk for VTE Risk for VTE: Yes Risk Level: Moderate Risk Assessment Date: 01/04/19 Risk Assessment Time: 16:08 VTE Orders Placed or Will Be Placed: Yes Plan - Inpatient Certification Inpatient Certification: Admit to inpatient care: Based on my medical assessment, after consideration of patient's risk factors (age, co-morbidities and patient presenting symptoms and acuity), I expect that this patient will remain in the hospital greater than or equal to two midnights and that the services needed warrant inpatient care because: Patient Risk Factors: [hypoxia and severe COPD with bilaateral pneumonia] Estimated length of stay: [3] The patient may reasonably be expected to be discharged or transferred to a hospital within 96 hours after admission to [facility]. Services needed: [IV rocephin, IV solumedrol, duoneb treatments, wound care of the left leg] Post hospital care (if known): [] I certify that my determination is in accordance with my understanding of Medicare requirements for reasonable and necessary inpatient services. 01/04/19 16:08 - Detailed Diagnosis and Plan (1) Pneumonia Current Visit: Yes Status: Acute Qualifiers: Laterality: bilateral Lung location: lower lobe of lung Base Code: J18.9 - PNEUMONIA, UNSPECIFIED ORGANISM Narrative Support Text: Patient came to the ED SOB for 3 days and hypoxic and he is still smoking cigarettes. Chest xray shows bilateral lower lob pneumonia Priority: High (2) Ulcer of left lower leg Current Visit: Yes Status: Acute Base Code: L97.929 - NON-PRS CHRONIC ULC UNSP PRT OF L LOW LEG W UNSP SEVERITY Priority: Medium (3) Pancreatic insufficiency Current Visit: Yes Status: Acute Base Code: K86.89 - OTHER SPECIFIED DISEASES OF PANCREAS Priority: Low (4) COPD (chronic obstructive pulmonary disease) Current Visit: Yes Status: Acute Qualifiers: COPD type: unspecified COPD Qualified Code(s): J44.9 - Chronic obstructive pulmonary disease, unspecified Base Code: J44.9 - CHRONIC OBSTRUCTIVE PULMONARY DISEASE, UNSPECIFIED Priority: High (5) Hypoxia Current Visit: Yes Status: Acute Base Code: R09.02 - HYPOXEMIA Priority: H igh (6) Chronic pancreatitis Current Visit: No Status: Acute Base Code: K86.1 - OTHER CHRONIC PANCREATIT IS Priority: Low - Disposition to go home
[2019-01-04] MEDS: CEFTRIAXONE SODIUM 1 GM in 0.9 % SODIUM CHLORIDE 100ML 100 ML IVPB SCH (20:05)
[2019-01-05] MEDS: ONDANSETRON 4 MG ODT TABLET PO SCH ×4 (01:18→22:21)
[2019-01-05] MEDS: METHYLPREDNISOLONE PF 125MG/VIAL IVP SCH ×3 (01:19→17:24)
[2019-01-05 06:51] LABS: BLOOD UREA NITROGEN 12 mg/dL (8-23); CREATININE 0.4 mg/dL (0.7-1.2); EST GLOMERULAR FILTRATION RATE > 60 mL/min; GLUCOSE,RANDOM 289 mg/dL (74-109)
[2019-01-05] MEDS: CREON 10 PO SCH ×3 (06:51→17:21)
[2019-01-05] MEDS ORDERED: ACETAMINOPHEN 325 MG TAB PO PRN (07:04)
[2019-01-05] MEDS: CEFTRIAXONE SODIUM 1 GM in 0.9 % SODIUM CHLORIDE 100ML 100 ML IVPB SCH ×2 (08:25→19:53)
[2019-01-05] MEDS: HYDROCODONE/APAP 5/325MG TABLET PO PRN ×3 (08:33→20:28)
[2019-01-05] MEDS: IPRATROPIUM/ALBUTEROL (0.5MG/3MG) NEB INH SCH ×5 (08:50→18:14)
[2019-01-05] MEDS: AZITHROMYCIN 500 MG TABLET PO SCH (10:28)
[2019-01-05] MEDS: ENOXAPARIN 40 MG/0.4 ML SYR SQ SCH (10:28)
[2019-01-05] MEDS: RANITIDINE HCL 150 MG TABLET PO PRN (10:37)
[2019-01-06] MEDS: HYDROCODONE/APAP 5/325MG TABLET PO PRN ×3 (02:36→15:44)
[2019-01-06] MEDS: METHYLPREDNISOLONE PF 125MG/VIAL IVP SCH ×2 (02:37→09:49)
[2019-01-06] MEDS: IPRATROPIUM/ALBUTEROL (0.5MG/3MG) NEB INH SCH ×2 (06:33→11:05)
[2019-01-06] MEDS: ONDANSETRON 4 MG ODT TABLET PO SCH ×3 (06:35→22:30)
[2019-01-06] MEDS: CREON 10 PO SCH ×3 (06:36→15:45)
[2019-01-06] MEDS ORDERED: 0.9 % SODIUM CHLORIDE 1,000 ML BAG IV ONE (06:54)
[2019-01-06] MEDS: CEFTRIAXONE SODIUM 1 GM in 0.9 % SODIUM CHLORIDE 100ML 100 ML IVPB SCH ×2 (07:50→19:21)
[2019-01-06] MEDS: ENOXAPARIN 40 MG/0.4 ML SYR SQ SCH (09:49)
[2019-01-06] MEDS: AZITHROMYCIN 500 MG TABLET PO SCH (09:50)
[2019-01-06] MEDS: RANITIDINE HCL 150 MG TABLET PO PRN (09:58)
[2019-01-06] MEDS ORDERED: 0.9 % SODIUM CHLORIDE 1000ML 2,000 ML IV ONE (15:20)
[2019-01-06] MEDS: PREDNISONE 20 MG TAB PO SCH (17:50)
[2019-01-07] MEDS: IPRATROPIUM/ALBUTEROL (0.5MG/3MG) NEB INH SCH ×4 (07:36→18:28)
--- NOTE | 2019-01-07 07:40 | History and Physical Report ---
CHIEF COMPLAINT: Short of breath. HISTORY OF PRESENT ILLNESS: This 68-year-old male presented to the emergency department short of breath. Started about 3 days prior to 5 days prior to admission. He denies fever, chills, cough symptoms. Reports a history of COPD and similar problems. He still smokes cigarettes. Denies chest pain. Does have generalized weakness and has lost a lot of weight because of his [facility] of his pancreas [facility] from chronic pancreatitis. His left leg also has an ulceration on it, redness and appears to be with cellulitis. PAST MEDICAL HISTORY: Chronic pancreatitis, multiple episodes of acute pancreatitis, gastroesophageal reflux disease, chronic obstructive pulmonary disease, tobacco use disorder, alcohol abuse in the past and some currently but he denies drinking recently. PAST SURGICAL HISTORY: History of testicular cancer with recent testicular biopsy done by Dr. Quinteros. The right testicle was removed in 1983. He had a Whipple procedure in 2002 at [facility]. At that time, lymph node biopsies were negative for cancer. He had a scrotal surgery 4 years ago in 2014 because of swollen scrotum, painful testicles. MEDICATIONS: 1. Zantac 150 mg b.i.d. 2. Zofran 4 mg q.8 h. p.r.n. 3. Pancreatic enzymes 10 tablets with meals. 4. Hydrocodone 5 mg q.6 h. p.r.n. ALLERGIES: No known drug allergies. FAMILY HISTORY: His mother of lung cancer. She was a cigarette smoker. Otherwise unremarkable history. REVIEW OF SYSTEMS: See Chief Complaint. HEENT: Some congestion. Not much of a cough but he is mostly short of breath. Cardiovascular: No chest pain, palpitations, or arrhythmia. Respiratory: Short of breath. Coughing slightly. Weak. Gastrointestinal: No nausea, vomiting, diarrhea, black stools, or bloody stools. No abdominal pain. Genitourinary: No dysuria, hematuria, frequency, or burning on urination. Musculoskeletal: No joint or bone abnormalities. Very skinny. Nutritional issues with absorption because of his chronic pancreatitis. Neurological: No CVA, paralysis, or paresthesias. Endocrine: No diabetes or thyroid disease. Integument: No rash, ulcers, change in moles, or yellow skin but he is very cachectic. PHYSICAL EXAMINATION: VITALS: Height 5 feet 8 inches, weight 74 pounds. Temperature 98.4, pulse 97, respiratory rate 16, pulse ox 92 on 2L nasal cannula. When I came into the room to examine him, he was very lethargic. Somehow he got put up to 4L/min nasal cannula. Respiratory did an ABG. His PCO2 was in the normal range. They could not do the oxygen because they have some problem with their machinery and it will not be up and running until tomorrow. HEENT: Throat is clear. NECK: Supple. No hepatojugular reflux. No carotid bruits. Thyroid is smooth. CARDIOVASCULAR: Regular rate and rhythm without murmurs, clicks, rubs, or gallops. RESPIRATORY: Decreased breath sounds bilaterally. ABDOMEN: No pain on palpation. He does have some chronic abdominal pain on palpation but no acute pain. EXTREMITIES: Redness on the left lower leg with ulceration on the anterior part of the leg. Pulses are faint in that foot. BREASTS: Normal male breasts. RECTAL: Deferred. GENITALIA: Deferred. NEUROLOGIC: Cranial nerves II-XII intact. No gross defects. Sensation normal, strength normal. Deep tendon reflexes equal bilaterally with Babinski negative. MENTAL STATUS: Alert and oriented x3. IMPRESSION: 1. Pneumonia bilaterally, lower lungs. 2. Chronic obstructive pulmonary disease exacerbation. 3. Pancreatic insufficiency. 4. Ulceration and cellulitis of the left lower leg. 5. Possible peripheral arterial disease. PLAN: IV Rocephin 1 g q.12 h. Oral azithromycin 500 daily. IV Solu-Medrol. He was given 125 in the ER and then 60 mg q.8 h. after to follow. Oxygen therapy. DuoNeb treatments q.4 h. while awake and albuterol q.2 h. p.r.n. MTDD
[2019-01-07] MEDS: ONDANSETRON 4 MG ODT TABLET PO SCH ×3 (08:00→22:08)
[2019-01-07] MEDS: CREON 10 PO SCH ×3 (08:00→17:39)
[2019-01-07] MEDS: PREDNISONE 20 MG TAB PO SCH ×2 (08:00→17:39)
[2019-01-07] MEDS: HYDROCODONE/APAP 5/325MG TABLET PO PRN ×2 (08:01→21:49)
[2019-01-07] MEDS: CEFTRIAXONE 1GM/50ML BAG 1 GM/50 ML BAG IVPB SCH ×2 (08:36→20:34)
[2019-01-07] MEDS: CEFTRIAXONE SODIUM 1 GM in 0.9 % SODIUM CHLORIDE 100ML 100 ML IVPB SCH (08:38)
[2019-01-07] MEDS ORDERED: ZINC OXIDE 28.35 GM TUBE TOP ONE (10:29)
[2019-01-07] MEDS: ENOXAPARIN 40 MG/0.4 ML SYR SQ SCH (10:37)
[2019-01-07] MEDS: AZITHROMYCIN 500 MG TABLET PO SCH (10:37)
--- NOTE | 2019-01-07 10:37 | Rehab Evaluation ---
Patient Information - Patient Information Diagnosis: COPD exacerbation Ordered Treatment: PT Evaluate and Treat Status: Initial Evaluation History: Detail (The patient presented in ED on 01/03/19 with c/o difficulty breathing and generalized weakness.) Past Medical/Surgical Hx: PAST MEDICAL/SURGICAL HISTORY Past Surgical History Testicular Biopsy x 3 Testicular Cancer-1 removed 1983(right testicle) Whipple- 2002 bx of lymph nodes(negative for CA) EGD colonoscopy PMH - Respiratory Hx Respiratory Disorders Yes Hx Bronchitis Yes: had bronchitis Feb 2014-better now Hx Pneumonia Yes PMH - Cardiovascular Hx Cardiovascular Disorders No PMH - Neuro Hx Neurological Disorders No PMH - GI Hx Gastrointestinal Disorders Yes Hx Abdominal Pain Yes: occasional, a"2-3 all the time" Hx Gastroesophageal Reflux Yes Hx Nausea/Vomiting Yes Hx Pancreatitis Yes: last pancreatitis jan 2015 PMH - Hx Genitourinary Disorders Yes Comment: testicular CA PMH - Endocrine Hx Endocrine Disorders No PMH - Musculoskeletal Hx Musculoskeletal Disorders Yes PMH - Psych Hx Psychiatric Problems Yes Hx Anxiety Yes Hx Depression Yes Comment: pt denies depression at this time PMH - Hematology/Oncology Hx Hematology/Oncology Yes Disorders Hx Cancer Yes: right testicle Hx Chemotherapy No Hx Radiation Therapy No Premorbid Status: Detail ( Per the patient's report prior to admission he was ambulating without device,sharing housework with his spouse, independent with showering but had assistance with dressing.) Social History: Detail (The patient lives in a 2 story house with basement with spouse with 2 steps at the enterance without railings. The patient's bedroom is on the main floor. The bathroom has a tub/shower combination and regular toilet. No grab bars are present in the bathroom.The patient reports he thinks he has a walker and a cane at home that he can use.) Precautions: [place], Fall - Time With Patient Total Time Spent With Patient (Min): 30 Treatment Procedures: Detail (Initial Evaluation) Subjective Information - Subjective Information Per Patient (The patient had complaints of nausea.) Objective Data - Mental Status Patient Orientation: Person, Place (The patient knew place, birthdate, age, current year and president. The patient did not know current month(November).) - Visual Perception Deficit (wears glasses) - ROM Within normal limits (The patient's LE AROM is WFL.) - Strength/Tone Not within normal limits (The patient's LE strength was as follows: hip flexors bilaterally 3/5, hip abductors/adductors 3+/5, knee extensors R 4-/5, L 4/5, knee flexors 4-/5, ankle musculature 4/5.) - Bed Mobility Independent (The patient was independent with supine to and from sit transfer and scooting up in bed.) - Transfers Independent (The patient was independent with sit to and from stand transfer with verbal cues for proper technique.) - Balance Balance Sitting: Good Balance Standing: Fair (The patient required support of walker) - Gait Detail (The patient ambulated with front wheeled walker a distance of 30 feet x 1 with supervision for safety. The patient was fatigued after ambulating and returned to bed.) Therapy Assessment - Therapy Assessment Detail (The patient exhibited decreased LE strength and decreased ability to complete prolonged physical activity. Use of a walker for ambulation upon discharge is recommended. The patient would benefit from inpt. between and ongoing Home PT upon discharge from [facility] to increased LE strength and endurance for physical activity.) Problem List - Problem List Physical Therapy Problem List: Detail (1)Decreased LE strength 2) Decreased ability to complete prolonged physical activity) Goals - Goals Physical Therapy Goals: 1) The patient will ambulate independently with appropriate assistance device household distances. 2) Increase LE strength 1/3 muscle grade to improve stability of gait. 3) The patient will tolerate 20 minutes of physical activity with one to two rest periods. Prognosis - Prognosis Moderate Plan - Plan Physical Therapy Plan: PT daily for gait training, LE strengthening and endurance exercises.
[2019-01-07] MEDS ORDERED: ONDANSETRON HCL IV 4 MG/2 ML VIAL IVP ONE (13:26)
[2019-01-07] MEDS ORDERED: ZINC OXIDE 28.35 GM TUBE TOP PRN (13:39)
--- NOTE | 2019-01-07 14:25 | ULTRASOUND REPORT ---
EXAMINATION: Bilateral Lower Extremity Arterial Duplex Doppler Imaging EXAM DATE: 01/07/2019 1:37 PM TECHNIQUE: Color Doppler, spectral Doppler, and moore scale ultrasound evaluation of the left and rig ht lower extremity arteries was performed. INDICATION: decreased pulses in feet and left leg ulcers COMPARISON: None RIGHT LOWER EXTREMITY FINDINGS: 1. Common Femoral Artery: The peak systolic velocity is 40 cm/sec. Biphasic 2. Superficial Femoral Artery: Biphasic waveform. No significant stenosis or occlusion is present. 3. Popliteal Artery: Biphasic waveform. No aneurysm, occlusion or significant stenosis is present. 4. Anterior Tibial Artery: Biphasic waveform. No occlusion or significant stenosis is present. 5. Posterior Tibial Artery: biphasic waveform. No occlusion or significant stenosis is present. 6. Peroneal Artery: Biphasic waveform. No occlusion or significant stenosis is present. 7. Dorsalis Pedis Artery: Monophasic waveform. No occlusion or significant stenosis is present. LEFT LOWER EXTREMITY FINDINGS: Images of the external iliac arteries show monophasic waveform. 1. Common Femoral Artery: The peak systolic velocity is 40 cm/sec. Monophasic waveform 2. Superficial Femoral Artery: Monophasic 3. Popliteal Artery: Monophasic 4. Anterior Tibial Artery: Monophasic 5. Posterior Tibial Artery: Monophasic 6. Peroneal Artery: Monophasic 7. Dorsalis Pedis Artery: Monophasic IMPRESSION: Monophasic waveforms throughout the left lower extremity. Biphasic waveforms throughout the right lower extremity. Consider aortoiliac disease. Dictated by: Mike Lion MD on 01/07/2019 2:18 PM. .
--- NOTE | 2019-01-07 14:46 | Rehab Evaluation ---
Patient Information - Patient Information Diagnosis: COPD exacerbation, hypoxia, pneumonia, cellulitis left lower leg Ordered Treatment: OT Evaluate and Treat Status: Initial Evaluation Surgery: No History: Detail (The patient presented in ED on 01/03/19 with c/o difficulty breathing and generalized weakness.) Past Medical/Surgical Hx: PAST MEDICAL/SURGICAL HISTORY Past Surgical History Testicular Biopsy x 3 Testicular Cancer-1 removed 1983(right testicle) Whipple- 2002 bx of lymph nodes(negative for CA) EGD colonoscopy PMH - Respiratory Hx Respiratory Disorders Yes Hx Bronchitis Yes: had bronchitis Feb 2014-better now Hx Pneumonia Yes PMH - Cardiovascular Hx Cardiovascular Disorders No PMH - Neuro Hx Neurological Disorders No PMH - GI Hx Gastrointestinal Disorders Yes Hx Abdominal Pain Yes: occasional, a"2-3 all the time" Hx Gastroesophageal Reflux Yes Hx Nausea/Vomiting Yes Hx Pancreatitis Yes: last pancreatitis jan 2015 PMH - Hx Genitourinary Disorders Yes Comment: testicular CA PMH - Endocrine Hx Endocrine Disorders No PMH - Musculoskeletal Hx Musculoskeletal Disorders Yes PMH - Psych Hx Psychiatric Problems Yes Hx Anxiety Yes Hx Depression Yes Comment: pt denies depression at this time PMH - Hematology/Oncology Hx Hematology/Oncology Yes Disorders Hx Cancer Yes: right testicle Hx Chemotherapy No Hx Radiation Therapy No Premorbid Status: Detail (Per the patient's report prior to admission he was ambulating without device, sharing housework and meal prep with his spouse, independent with showering but had assistance with dressing at times.) Social History: Detail (The patient lives in a 2 story house with basement with spouse with 2 steps at the entrance without railings. The patient's bedroom is on the main floor. The bathroom has a tub/shower combination and standard height toilet. No grab bars are present in the bathroom.) Precautions: [place], Fall - Time With Patient Total Time Spent With Patient (Min): 40 Treatment Procedures: Detail (OT eval low complexity) Subjective Information - Subjective Information Per Patient Objective Data - Pain Pain Present: Yes (3/10 abdominal pain) - Mental Status Patient Orientation: Oriented x3 - Visual Perception Appears within normal limits for therapeutic activities (Pt reports he wears glasses at all times.) - ROM Within normal limits (Darell UE AROM WNL) - Strength/Tone Within normal limits (Darell UE strength grossly 4 to 4+/5 throughout) - Coordination Appears within normal limits for therapeutic activities - Bed Mobility Independent (Ind with supine to sit and sit to supine although he had moderate difficulty with lifting legs into bed.) - Transfers Independent (Ind with sit to stand from EOB after verbal cues for technique.) - Balance Balance Sitting: Good Balance Standing: Good - Sensation Intact - Gait Detail (Pt ambulating short distance with 2 wheeled walker and CG assist.) - ADL's/IADL's Detail (Pt reports he has been unable to complete any self cares since admission.) Therapy Assessment - Therapy Assessment Detail (Pt presents with significant impairment in endurance and functional Ind due to fatigue and nausea.) Problem List - Problem List Occupational Therapy Problem List: Detail (1. Decreased endurance needed for safe and Ind self cares. 2. Decreased Ind with dressing/showering.) Goals - Goals Occupational Therapy Goals: 1. Pt will demonstrate improved overall endurance needed for safe and Ind self cares. 2. Pt will be Ind with total body dressing. Prognosis - Prognosis Good Plan - Plan Occupational Therapy Plan: OT 1-2 times per week to address endurance and ADLs. Recommend home OT after discharge to assess safety and Ind at home.
[2019-01-07] MEDS: BREO (FLUTICASONE/VILANTEROL) 100MCG/25MCG INHALER INH SCH (15:32)
[2019-01-07] MEDS: ALBUTEROL HFA 8 GM INHALER INH SCH (18:28)
--- NOTE | 2019-01-08 06:02 | Medical Records Consult ---
REASON FOR CONSULTATION: Recurring nausea. HISTORY OF PRESENT ILLNESS: The patient is a pleasant 68-year-old male seen in consultation in the hospital today for evaluation of recurring nausea. He states that he has been suffering with this for the past several months. He was actually admitted to the hospital on 01/03/2019 with an exacerbation of COPD and possible pneumonia. He states that he presented due to severe shortness of breath starting 5 days prior to admission. Since admission, his breathing has somewhat improved. From a GI standpoint, he had a Whipple procedure completed at the [facility] in 2002 for chronic pancreatitis. He was a chronic alcoholic and states he still tends to drink "on occasion." He denies the use of anti-inflammatory medications. He does admit to occasional pyrosis. He does admit to early satiety and nausea particularly after meals. He states that his nausea worsens if he does not take his Creon. He claims he has had upper endoscopies in the past as well as x-rays of his upper GI tract. He states that his last colonoscopy was 2-3 years ago although there was no record of it in our computer from [facility]. He denies regular vomiting. He states that he tends to be constipated, sometimes skipping days between stools. He states that he had a colonoscopy 2-3 years ago as mentioned above. He has advanced COPD and continued to smoke until, he claims, 2 weeks ago when he took his "last cigarette." PAST MEDICAL HISTORY: Chronic pancreatitis related to alcohol, chronic gastroesophageal reflux, COPD, alcohol and tobacco usage in the past, current intermittent alcohol usage. PAST SURGICAL HISTORY: Whipple procedure at [facility] in 2002. He had testicular cancer with recent biopsy by Dr. Quinteros. He had a previous right orchiectomy in 1983. He also had scrotal surgery 4 years ago due to swelling and pain. HOME MEDICATIONS: 1. Zantac 150 mg twice daily although he does not take this regularly. 2. Zofran 4 mg every 8 hours as needed for nausea. 3. Pancreatic enzymes with meals. 4. Hydrocodone as needed for pain every 6 hours. ALLERGIES: There is no history of drug allergies. FAMILY HISTORY: Significant for lung cancer in mother. Otherwise, family history is noncontributory. REVIEW OF SYSTEMS: Dated 01/03/2019 was reviewed. Other than the above, there were no additional abnormal claims. PHYSICAL EXAMINATION: GENERAL: He is alert and oriented. He is eating lunch. He is quite cachectic in appearance. VITAL SIGNS: Stable. NECK: Supple. HEART: Regular. LUNGS: Diminished breath sounds bilaterally. ABDOMEN: Soft. There is no rebound, rigidity, or guarding. EXTREMITIES: Ulceration on his left lower extremity. NEUROMUSCULAR: Grossly unremarkable. As mentioned, he is completely alert and oriented. LABORATORY DATA: White blood cell count 11.4, hemoglobin 14.1, hematocrit 44.0, MCV 105.3, platelet count 205,000. Metabolic panel was unremarkable other than a sodium of 129, potassium slightly elevated at 4.7, chloride depleted at 93, CO2 21, alkaline phosphatase 141, albumin 2.6, total protein 6.4, calcium 8.8. The patient's glucose on 01/05/2019 was elevated at 289. RADIOGRAPHIC DATA: Chest x-ray obtained on 01/03/2019 revealed COPD. No acute process was noted. Chest x-ray from 01/03/2019 demonstrated possible lower lobe pneumonia. IMPRESSION: 1. The patient suffers with recurring episodes of nausea which could be related to gastritis, acid peptic disease, H pylori infection, and/or gastroparesis. He could also be harboring a malignancy given his prior history of Whipple procedure with subtotal gastrectomy. 2. Chronic obstructive pulmonary disease exacerbation with possible pneumonia. 3. History of tobacco and alcohol indiscretion. RECOMMENDATIONS: I would like to perform a structural examination of the patient's upper GI tract but he declined having endoscopy at this time. Perhaps an upper GI x-ray might prove beneficial to rule out obstructive-type pathology or mucosal changes. Secondly, if not completed, H pylori antibody might be of benefit. He most likely would benefit from frequent small meals up to 6 or 7 times a day rather than 3 meals. I would continue with acid blockade therapy on a regular basis rather than on an as-needed basis, which he claims he is doing currently. I will discuss my impressions and recommendations with Dr. Evans. Thank you for allowing me to participate in his care. ROSSY
[2019-01-08] MEDS: CREON 10 PO SCH ×3 (06:03→16:04)
[2019-01-08] MEDS: ONDANSETRON 4 MG ODT TABLET PO SCH ×4 (06:14→22:09)
[2019-01-08] MEDS: ALBUTEROL HFA 8 GM INHALER INH SCH ×5 (08:25→21:17)
[2019-01-08] MEDS: AZITHROMYCIN 500 MG TABLET PO SCH (09:37)
[2019-01-08] MEDS: ENOXAPARIN 40 MG/0.4 ML SYR SQ SCH (09:37)
[2019-01-08] MEDS: FAMOTIDINE 20MG TABLET PO SCH ×2 (09:37→22:00)
[2019-01-08] MEDS: CEFTRIAXONE 1GM/50ML BAG 1 GM/50 ML BAG IVPB SCH (09:39)
[2019-01-08] MEDS: PREDNISONE 20 MG TAB PO SCH ×3 (09:39→19:41)
[2019-01-08] MEDS: BREO (FLUTICASONE/VILANTEROL) 100MCG/25MCG INHALER INH SCH (09:51)
--- NOTE | 2019-01-08 10:32 | Physical Therapy Tx Note ---
Physical Therapy Tx Note - Treatment Note Tolerated: Good Total Time Spent With Patient: 15 Physical Therapy Tx Note: Detail (The patient was in bed when PT arrived and refused all activity. PT was able to have patient complete the following LE strengthening exercises in bed: ankle pumps, heel slides, hip abduction/adduction and gluteal sets all 3-5 reps. The patient exhibited shortness of breath and was fatigue after exercises. The patient was instructed to complete LE's throughout the day.) Physical Therapy Problem List: Detail (1)Decreased LE strength 2) Decreased ability to complete prolonged physical activity) Physical Therapy Goals: 1) The patient will ambulate independently with appropriate assistance device household distances. 2) Increase LE strength 1/3 muscle grade to improve stability of gait. 3) The patient will tolerate 20 minutes of physical activity with one to two rest periods. Physical Therapy Plan: PT daily for gait training, LE strengthening and endurance exercises.
[2019-01-08 13:46] LABS: BLOOD UREA NITROGEN 9 mg/dL (8-23); CREATININE 0.2 mg/dL (0.7-1.2); EST GLOMERULAR FILTRATION RATE > 60 mL/min
[2019-01-08 13:48] LABS: ABSOLUTE NEUTROPHIL COUNT 7.23; HEMATOCRIT 40.1 % (42.0-52.0); MEAN CELL VOLUME 106.6 fl (81-97); MEAN CORPUSCULAR HGB CONC 32.4 g/dl (32-36); MEAN PLATELET VOLUME 8.9 fl (7.4-10.4); PLATELET COUNT 132 K/uL (130-400); RED BLOOD COUNT 3.76 M/uL (4.40-5.70)
[2019-01-08 13:49] LABS: GLUCOSE,RANDOM 112 mg/dL (74-109); MEAN CORPUSCULAR HEMOGLOBIN 34.5 pg (27-33)
[2019-01-08] MEDS: AMOXICILLIN/POTASSIUM CLAV 875MG/125MG TABLET PO SCH ×2 (13:54→22:00)
[2019-01-08 14:09] LABS: PLATELET ESTIMATE NORMAL (NORMAL)
[2019-01-08] MEDS: DRONABINOL 2.5 MG CAPSULE PO SCH (16:03)
[2019-01-09] MEDS: ONDANSETRON 4 MG ODT TABLET PO SCH (06:15)
[2019-01-09] MEDS: DRONABINOL 2.5 MG CAPSULE PO SCH (06:15)
[2019-01-09] MEDS: CREON 10 PO SCH ×2 (06:16→11:30)
[2019-01-09] MEDS: ALBUTEROL HFA 8 GM INHALER INH SCH ×3 (06:39→14:12)
--- NOTE | 2019-01-09 07:36 | Discharge Note ---
VTE H&P Assessment - Risk for VTE Risk for VTE: Yes Risk Level: Moderate Risk Assessment Date: 01/04/19 Risk Assessment Time: 16:08 VTE Orders Placed or Will Be Placed: Yes Discharge Medications - Discharge Medications Prescriptions: Amoxicillin/Potassium Clav [Augmentin 875Mg/125Mg] 1 each PO BID #20 tablet Mupirocin [Bactroban] 1 gm TOP BID PRN #30 ointment PRN Reason: Compound Fluticasone/Vilanterol 100/25 [Breo Ellipta 100-25 Mcg INH] 1 puff INH DAILY #1 inhaler Dronabinol 2.5 mg Capsule [Dronabinol] 2.5 mg PO BIDAC #60 capsule Hydrocodone/APAP 5/325Mg [Bryant 5Mg/325Mg] 1 each PO Q6H PRN #12 tab PRN Reason: Pain - Severe (8-10) Famotidine [Pepcid] 20 mg PO BID #60 tablet Prednisone [Prednisone 10Mg] 10 mg PO ASDIR #30 tab Albuterol Sulfate [Ventolin Hfa] 2 puff INH RESP.Q4H.WA #1 inhaler Ondansetron [Zofran Odt] 4 mg PO Q8H #30 tab.rapdis Home Medications: Ambulatory Orders Lipase/Protease/Amylase [Creon Dr 12,000 Units Capsule] 10 tab PO TID 09/21/13 [Last Taken 01/03/19] Acetaminophen [Tylenol 325Mg] 650 mg PO Q6H PRN tablet 01/09/19 [Last Taken Unknown] Albuterol Sulfate [Ventolin Hfa] 2 puff INH RESP.Q4H.WA #1 inhaler 01/09/19 [Last Taken Unknown] Amoxicillin/Potassium Clav [Augmentin 875Mg/125Mg] 1 each PO BID #20 tablet 01/09/19 [Last Taken Unknown] Dronabinol 2.5 mg Capsule [Dronabinol] 2.5 mg PO BIDAC #60 capsule 01/09/19 [Last Taken Unknown] Famotidine [Pepcid] 20 mg PO BID #60 tablet 01/09/19 [Last Taken Unknown] Fluticasone/Vilanterol 100/25 [Breo Ellipta 100-25 Mcg INH] 1 puff INH DAILY #1 inhaler 01/09/19 [Last Taken Unknown] Hydrocodone/APAP 5/325Mg [Bryant 5Mg/325Mg] 1 each PO Q6H PRN #12 tab 01/09/19 [Last Taken Unknown] Mupirocin [Bactroban] 1 gm TOP BID PRN #30 ointment 01/09/19 [Last Taken Unknown] Ondansetron [Zofran Odt] 4 mg PO Q8H #30 tab.rapdis 01/09/19 [Last Taken Unknown] Prednisone [Prednisone 10Mg] 10 mg PO ASDIR #30 tab 01/09/19 [Last Taken Unknown] Zinc Oxide [Desitin] 5 gm TOP ASDIR PRN tube 01/09/19 [Last Taken Unknown] Discharge Note - Date Date of Discharge Note: 01/09/19 Disposition: Home, Self-Care Condition: (2) Stable Additional Instructions: eat 6 small meals per day and eat foods high in salt follow up with Dr Evans on Mondayjan 14 use a walker to get around Forms: Patient Portal Access
--- NOTE | 2019-01-09 07:56 | Discharge Summary ---
Providers Discharge Summary Date: 01/09/19 Date of admission: 01/03/19 23:00 Expected Date of Discharge: 01/09/19 Attending physician: Jean Marie Evans Primary care physician: Jean Marie Evans Consults: Consult Orders 01/07/19 08:59 Consult NOW Consulting Provider: NOE GERARDO Physician Instructions: Reason For Exam: Nausea after eating 01/08/19 13:16 Eligibility Specialist [Consult - Case Management] NOW Comment: placement for deconditioning from pneumonia ,copd Reason For Exam: deconditioned Physical Exam - Vital Signs Vital Signs: Vital Signs - Last 24 Hrs Temp Pulse Pulse Resp BP BP Pulse Ox 01/09/19 04:00 98.0 F 87 18 117/81 93 L 01/09/19 00:00 98.1 F 99 H 18 116/70 94 L 01/08/19 21:00 16 01/08/19 20:00 97.7 F 104 H 18 103/59 92 L 01/08/19 16:00 98.0 F 99 H 16 107/67 95 01/08/19 14:35 88 16 94 L 01/08/19 09:52 101 H 16 91 L 01/08/19 09:00 71 16 - General General Appearance: Alert, Oriented x3, Cooperative, Mild distress, Other (Cachetic appearing) Limitations: No limitations - Head Head exam: Atraumatic, Normocephalic, Normal inspection Head exam detail: negative: Abrasion, Contusion, Bullard's sign, General tenderness, Hematoma, Laceration - Eye Eye exam: Normal appearance. negative: Conjunctival injection, Periorbital swelling, Periorbital tenderness, Scleral icterus - ENT Ear exam: negative: Auricular hematoma, Auricular trauma Nasal Exam: negative: Active bleeding, Discharge, Dried blood, Foreign body Mouth exam: negative: Drooling, Laceration, Muffled voice, Tongue elevation - Neck Neck exam: Normal inspection. negative: Meningismus, Tenderness - Respiratory Respiratory exam: Decreased breath sounds. negative: Rales, Respiratory distress, Rhonchi, Stridor - Cardiovascular Cardiovascular Exam: Regular rate, Normal rhythm, Normal heart sounds - GI/Abdominal GI/Abdominal exam: Soft. negative: Rebound, Rigid, Tenderness - Rectal Rectal exam: Deferred - exam: Deferred - Extremities Extremities exam: Normal inspection. negative: Pedal edema, Tenderness - Back Back exam: Denies: CVA tenderness (R), CVA tenderness (L) - Neurological Neurological exam: Alert, Normal gait, Oriented X3 - Psychiatric Psychiatric exam: Normal affect, Normal mood - Skin Skin exam: Normal color. negative: Abrasion Type of lesion: negative: abrasion Hospitalization - Hospitalization Admission Diagnosis: COPD exacerbation. Hypoxia. Cachexia. pneumonia bilateral lower lungs. cellulitis of left lower leg. PAD left leg - Problem List/Discharge Diagnosis (1) Pneumonia Current Visit: Yes Status: Acute Discharge Diagnosis: Laterality: bilateral Lung location: lower lobe of lung Base Code: J18.9 - PNEUMONIA, UNSPECIFIED ORGANISM Narrative Support Text: Patient came to the ED SOB for 3 days and hypoxic and he is still smoking cigarettes. Chest xray shows bilateral lower lob pneumonia Diagnosis Priority: Primary (2) Ulcer of left lower leg Current Visit: Yes Status: Acute Base Code: L97.929 - NON-PRS CHRONIC ULC UNSP PRT OF L LOW LEG W UNSP SEVERITY Diagnosis Priority: Primary (3) Pancreatic insufficiency Current Visit: Yes Status: Acute Base Code: K86.89 - OTHER SPECIFIED DISEASES OF PANCREAS Diagnosis Priority: Primary (4) COPD (chronic obstructive pulmonary disease) Current Visit: Yes Status: Acute Discharge Diagnosis: COPD type: unspecified COPD Qualified Code(s): J44.9 - Chronic obstructive pulmonary disease, unspecified Base Code: J44.9 - CHRONIC OBSTRUCTIVE PULMONARY DISEASE, UNSPECIFIED Diagnosis Priority: Primary (5) Hypoxia Current Visit: Yes Status: Acute Base Code: R09.02 - HYPOXEMIA Diagnosis Priority: Primary (6) Chronic pancreatitis Current Visit: No Status: Acute Base Code: K86.1 - OTHER CHRONIC PANCREATITIS Diagnosis Priority: Secondary - Disposition to go home - Hospitalization Course Disposition: Home, Self-Care Hospital Course: patient gradually improved Procedures: Imaging and X-Rays 01/03/19 21:33 CHEST 2 VIEWS [RAD] Stat 01/07/19 08:25 ARTERIAL DOPPLER LOWER EXT WILLIE [US] Stat 01/08/19 13:01 ABDOMEN/PELVIS W CONTRAST [CT] Stat Cardiology Procedures 01/03/19 21:53 EKG NOW Abnormal Labs: Abnormal Lab Results 01/03/19 01/03/19 01/04/19 Range/Units 22:05 22:05 10:48 RBC 4.18 L (4.40-5.70) M/uL Hgb (14.0-18.0) gm/dl Hct (42.0-52.0) % MCV 105.3 H (81-97) fl MCH 33.7 H (27-33) pg RDW 15.6 H (11.5-14.5) % Neutrophils % 92.0 H (47-80) % Lymphocytes % 4.8 L (16-45) % Lymphocytes 3.0 L (16-45) % HCO3 27.7 H (18-23) mmol/L ABG Base Excess 3.4 H (-2 - 3) mmol/L Sodium 129 L (136-145) mmol/L Potassium 4.7 H (3.4-4.5) mmol/L Chloride 93 L (98-107) mmol/L Carbon Dioxide 21.0 L (22-29) mmol/L Creatinine 0.4 L (0.7-1.2) mg/dL Random Glucose (74-109) mg/dL Calcium (8.8-10.2) mg/dL Alkaline Phosphatase 141 H (40-129) U/L Total Protein 6.4 L (6.6-8.7) g/dL Albumin 2.6 L (4.0-5.0) g/dL Albumin/Globulin Ratio 0.7 L (1.1-1.8) 01/05/19 01/08/19 01/08/19 Range/Units 06:20 13:20 13:20 RBC 3.76 L (4.40-5.70) M/uL Hgb 13.0 L (14.0-18.0) gm/dl Hct 40.1 L (42.0-52.0) % MCV 106.6 H (81-97) fl MCH 34.5 H (27-33) pg RDW 15.0 H (11.5-14.5) % Neutrophils % 89.0 H (47-80) % Lymphocytes % (16-45) % Lymphocytes 8.0 L (16-45) % HCO3 (18-23) mmol/L ABG Base Excess (-2 - 3) mmol/L Sodium 133 L 127 L (136-145) mmol/L Potassium 4.6 H (3.4-4.5) mmol/L Chloride 87 L (98-107) mmol/L Carbon Dioxide 31.0 H (22-29) mmol/L Creatinine 0.4 L 0.2 L (0.7-1.2) mg/dL Random Glucose 289 H 112 H (74-109) mg/dL Calcium 8.4 L 8.2 L (8.8-10.2) mg/dL Alkaline Phosphatase (40-129) U/L Total Protein (6.6-8.7) g/dL Albumin (4.0-5.0) g/dL Albumin/Globulin Ratio (1.1-1.8) Condition at Discharge: (2) Stable Discharge Diagnosis: pneumonia bilateral lower lobe. ulcer left lower leg ,PAD of legs. COPD, Pa VTE Discharge VTE Reason For No Overlap Therapy: Not Indicated Discharge Medications - Discharge Medications Prescriptions: Amoxicillin/Potassium Clav [Augmentin 875Mg/125Mg] 1 each PO BID #20 tablet Mupirocin [Bactroban] 1 gm TOP BID PRN #30 ointment PRN Reason: Compound Fluticasone/Vilanterol 100/25 [Breo Ellipta 100-25 Mcg INH] 1 puff INH DAILY #1 inhaler Dronabinol 2.5 mg Capsule [Dronabinol] 2.5 mg PO BIDAC #60 capsule Hydrocodone/APAP 5/325Mg [[place] 5Mg/325Mg] 1 each PO Q6H PRN #12 tab PRN Reason: Pain - Severe (8-10) Famotidine [Pepcid] 20 mg PO BID #60 tablet Prednisone [Prednisone 10Mg] 10 mg PO ASDIR #30 tab Albuterol Sulfate [Ventolin Hfa] 2 puff INH RESP.Q4H.WA #1 inhaler Ondansetron [Zofran Odt] 4 mg PO Q8H #30 tab.rapdis Home Medications: Ambulatory Orders Lipase/Protease/Amylase [Creon Dr 12,000 Units Capsule] 10 tab PO TID 09/21/13 [Last Taken 01/03/19] Acetaminophen [Tylenol 325Mg] 650 mg PO Q6H PRN tablet 01/09/19 [Last Taken Unknown] Albuterol Sulfate [Ventolin Hfa] 2 puff INH RESP.Q4H.WA #1 inhaler 01/09/19 [Last Taken Unknown] Amoxicillin/Potassium Clav [Augmentin 875Mg/125Mg] 1 each PO BID #20 tablet 01/09/19 [Last Taken Unknown] Dronabinol 2.5 mg Capsule [Dronabinol] 2.5 mg PO BIDAC #60 capsule 01/09/19 [Last Taken Unknown] Famotidine [Pepcid] 20 mg PO BID #60 tablet 01/09/19 [Last Taken Unknown] Fluticasone/Vilanterol 100/25 [Breo Ellipta 100-25 Mcg INH] 1 puff INH DAILY #1 inhaler 01/09/19 [Last Taken Unknown] Hydrocodone/APAP 5/325Mg [[place] 5Mg/325Mg] 1 each PO Q6H PRN #12 tab 01/09/19 [Last Taken Unknown] Mupirocin [Bactroban] 1 gm TOP BID PRN #30 ointment 01/09/19 [Last Taken Unknown] Ondansetron [Zofran Odt] 4 mg PO Q8H #30 tab.rapdis 01/09/19 [Last Taken Unknown] Prednisone [Prednisone 10Mg] 10 mg PO ASDIR #30 tab 01/09/19 [Last Taken Unknown] Zinc Oxide [Desitin] 5 gm TOP ASDIR PRN tube 01/09/19 [Last Taken Unknown] Discharge Plan - Discharge Instructions Activity at Discharge: Increase Activity as Tolerated Diet at Discharge: Regular Diet, Advance to Usual Diet Dressing Change: Twice a day Additional Instructions: eat 6 small meals per day and eat foods high in salt follow up with Dr Evans on Mondayjan 14 use a walker to get around drink ensure plus three cans per day apply bactoban ointment twice a day to the lower leg Quality Measures - Quality Measures Quality Measures: Advance Directives, Documentation of Current Medications in Medical Record, Elder Maltreatment Screen and Follow-Up Plan, Screening for High Blood Pressure and F/U Documented - Current Medications Quality Measure: Measure #130: Documentation of Current Medications Documentation of Current Medications: <Current Medications Documented/Reviewed> [V8478] - Blood Pressure Screening Quality Measure: Screening for High Blood Pressure and Follow-Up Documented Does Patient Have Any of the Following: No Blood Pressure Classification: Normal BP Reading Systolic Measurement: 110 Diastolic Measurement: 74 Screening for High Blood Pressure: < Normal BP, F/U Not Required > [N1843] - Advance Directives Quality Measure: Measure #47: Care Plan Advance Directives Established: No Advance Directives Information Provided To Patient: No Advance Directives on File: No Living Will: No Power of Auto Inspector: Yes Power of Auto Inspector Name: Yocasta Lopez Advance Care Planning: <Care Plan/Decision Maker Documented; Discussed & D ocumented> [1123F] - Elder Abuse Suspicion Index Screening: Elder Abuse Suspicion Index Screening Rely on people for bathing, dressing, shopping, banking, etc: No Prevented from getting food, clothes, medication, etc: No Made to feel shamed or threatened by someone: No Forced to sign papers or use money against will: No Feel afraid, touched in ways not wanted or hurt physically: No Poor eye contact, withdrawn, malnourished, cuts or bruises: No Screening Result: Negative result EASI Reference Information: Mary RAE, Kaila C, Juanito D, Belén Khalil.Development and validation of a tool to assist physicians identification of elder abuse: The Elder Abuse Suspicion Index (EASI ). Journal of Elder Abuse and Neglect, 2008; 20 (3): 276-300. - Elder Maltreatment Screen Quality Measures: Elder Maltreatment Screen and Follow-Up Plan Elder Maltreatment Screen: <Negative, No Follow-Up Plan Required> [G8734]
[2019-01-09] MEDS: PREDNISONE 20 MG TAB PO SCH (08:46)
[2019-01-09] MEDS: FAMOTIDINE 20MG TABLET PO SCH (09:51)
[2019-01-09] MEDS: HYDROCODONE/APAP 5/325MG TABLET PO PRN (09:52)
[2019-01-09] MEDS: AMOXICILLIN/POTASSIUM CLAV 875MG/125MG TABLET PO SCH (09:52)
[2019-01-09] MEDS: ENOXAPARIN 40 MG/0.4 ML SYR SQ SCH (09:55)
[2019-01-09] MEDS: BREO (FLUTICASONE/VILANTEROL) 100MCG/25MCG INHALER INH SCH (10:34)
--- NOTE | 2019-01-10 09:31 | Discharge Summary ---
DATE: 01/09/2019 DISCHARGE DIAGNOSES: 1. Pneumonia, bibasilar lower lobe pneumonia. 2. Chronic obstructive pulmonary disease. 3. Pancreatic insufficiency. 4. Tobacco use. The patient stated that he stopped smoking 2 weeks ago. 5. Cachectic because of his pancreatic insufficiency and losing weight. 6. Ulcer of the left lower leg. 7. Peripheral arterial disease. See arterial Dopplers. 8. Chronic pancreatitis. 9. Gastroesophageal reflux disease. ATTENDING PHYSICIAN: Jean Marie Evans DO REASON FOR HOSPITALIZATION: This 68-year-old male presented to the emergency department short of breath. Started about 3 days prior to admission. He denies fevers, chills, cough symptoms. Reports a history of COPD and similar problems. He still smokes cigarettes but he claims he stopped about a week prior to admission. He does have generalized weakness with a lot of weight loss because of removal of his pancreas at [facility] in 2002. He has chronic pancreatic insufficiency. His left leg also has an ulcer on it, redness and appears to have cellulitis. We will check for peripheral arterial disease. SIGNIFICANT FINDINGS: Chest x-ray showed bilateral lower lobe pneumonia. Arterial Dopplers showing the left leg is monophasic and has a peak systolic velocity of 40 cm/second in the common femoral artery. Initial WBC 11,400, dropped to 8000. His hemoglobin on discharge was 13. He had 89 segs and 8 lymphs. Blood gas machine was not working properly but they were able to give me a PCO2 of 44, bicarb 27, pH 7.41 and they were not able to give me a PO2; however, they did give me a pulse ox of 92%. The last set of electrolytes, sodium 127, potassium 4.6, chloride 87, BUN 9, creatinine 0.2, glucose 112, calcium 8.2, magnesium 2.0. His albumin is low, 2.6. His albumin-globulin ratio is 0.7. THERAPY PROVIDED: A consult with GI was obtained. Impression: The patient suffers from recurrent episodes of nausea which could be related to gastritis, acid peptic disease, H pylori infection, and gastroparesis. He could also be harboring malignancy given his prior history of Whipple procedure with subtotal gastrectomy, chronic obstructive pulmonary disease with pneumonia, and history of alcohol and tobacco use. We tried to do a CT of the abdomen and pelvis; however, the patient would not drink the contrast, refused to do the test. He also refused the contrast for an upper GI and he refused an EGD evaluation. We possibly will be able to do these tests after he gets stronger and we will have him rehab to get stronger. We will also do an H pylori antibody as an outpatient. He would benefit from frequent small meals 6-7 times a day rather than 3 meals. Continue to do acid blockade on a regular basis rather than on an as-needed basis, which he claims he is doing currently. HOSPITAL COURSE: The patient gradually improved. He was started on Rocephin and azithromycin; however, I was concerned the azithromycin may have been causing some nausea. Switched over to Augmentin 875 twice a day and he seems to be doing better. I also added Marinol pills 2.5 mg b.i.d., which seemed to increase his appetite slightly. He refused to go to a detention for rehab. We will try rehabbing at home with close patient followup weekly for the next month and get Physical Therapy and OT to come in to assist at home. CONDITION ON DISCHARGE: Much improved but still guarded because of his comorbid condition. DISCHARGE INSTRUCTIONS: Follow up with Dr. Evans on 01/14/2019. Ensure Plus 3 cans a day. Use Bactroban ointment to the left lower leg twice a day. Eat 6-7 meals per day. Change the dressing on his leg twice a day. Eat high-salt foods because his sodium was low at 127. Use a walker to get around. Home medications of Augmentin 875 b.i.d. for 10 days, Bactroban twice a day to the left lower leg, Breo Ellipta 100/25 one puff daily, albuterol 2 puffs q.4 h. while awake, dronabinol 2.5 mg b.i.d., hydrocodone 5 mg once q.6 h. p.r.n. with 12 pills, Pepcid 20 mg b.i.d. because the Zantac is not on the market at this point, prednisone taper 40 mg a day for 3 days and then 30 mg a day for 3 days and then 20 mg a day for 3 days and then 10 mg a day for 3 days, Zofran ODT q.4- 8 h. as needed. Continue his home medications of Creon capsules 10 tablets t.i.d. with meals, Tylenol p.r.n. Continue the zinc oxide p.r.n. MTDD
== END 2019-01-09 14:35 | disposition home or self-care (01) | DRG 190 ==
LOC: ER 21:32 → MEDSURG 23:00
PROVIDERS: ADMIT Emergency Medicine; ATTEND Emergency Medicine
DX: J44.1 Chronic obstructive pulmonary disease with (acute) exacerbation (principal); J18.9 Pneumonia, unspecified organism; R64 Cachexia; L97.229 Non-pressure chronic ulcer of left calf with unspecified severity; K86.1 Other chronic pancreatitis; I73.9 Peripheral vascular disease, unspecified; R09.02 Hypoxemia; R53.1 Weakness; R06.02 Shortness of breath; K21.9 Gastro-esophageal reflux disease without esophagitis; R60.0 Localized edema; F17.210 Nicotine dependence, cigarettes, uncomplicated; Z90.79 Acquired absence of other genital organ(s)
CPT/HCPCS: 36600; 71046; 80048; 80053; 82375; 82803; 83735; 85027; 86677; 90686; 93005; 93010; 93925; 94640; 94761; 96374; 96375; 99223; 99233; 99239; 99285; J0696; J1650; J2405; J2930; J7030; J7512

== ENCOUNTER 2019-01-18 17:16 | Emergency (ER) | payer BC ==
--- NOTE | 2019-01-18 17:35 | Emergency Department Record ---
History of Present Illness - General Stated Complaint: UNABLE URINATE Time Seen by Provider: 01/18/19 17:26 Source: Patient Mode of Arrival: EMS Limitations: No limitations - History of Present Illness Initial Comments: The patient is here due to being unable to urinate for the last 12 hours. He has had mild lower abdominal pain since the onset. The patient denies any Cp, SOB, o r back pain. He was recently hospitalized for almost a week for COPD and was discharged 9 days ago and many new medicines. There has been no fever, vomiting, or diarrhea. MD Complaint: Other Onset/Timin -: Hour(s) - Related Data Previous Rx's Medication Instructions Recorded Acetaminophen [Tylenol 325Mg] 650 mg PO Q6H PRN tablet 01/09/19 Albuterol Sulfate [Ventolin Hfa] 2 puff INH RESP.Q4H.WA #1 inhaler 01/09/19 Amoxicillin/Potassium Clav 1 each PO BID #20 tablet 01/09/19 [Augmentin 875Mg/125Mg] Dronabinol 2.5 mg Capsule 2.5 mg PO BIDAC #60 capsule 01/09/19 [Dronabinol] Famotidine [Pepcid] 20 mg PO BID #60 tablet 01/09/19 Fluticasone/Vilanterol 100/25 1 puff INH DAILY #1 inhaler 01/09/19 [Breo Ellipta 100-25 Mcg INH] Hydrocodone/APAP 5/325Mg [[place] 1 each PO Q6H PRN #12 tab 01/09/19 5Mg/325Mg] Mupirocin [Bactroban] 1 gm TOP BID PRN #30 ointment 01/09/19 Ondansetron [Zofran Odt] 4 mg PO Q8H #30 tab.rapdis 01/09/19 Prednisone [Prednisone 10Mg] 10 mg PO ASDIR #30 tab 01/09/19 Zinc Oxide [Desitin] 5 gm TOP ASDIR PRN tube 01/09/19 Allergies Allergy/AdvReac Type Severity Reaction Status Date / Time No Known Drug Allergies Allergy Verified 12/04/18 09:42 Review of Systems Constitutional: Reports: Malaise. Denies: Chills, Fever Eyes: Denies: Eye discharge ENT: Denies: Congestion Respiratory: Denies: Cough, Dyspnea Cardiovascular: Denies: Arrhythmia Endocrine: Reports: Fatigue Gastrointestinal: Denies: Nausea Genitourinary: Denies: Dysuria Musculoskeletal: Denies: Arthralgia Skin: Denies: Bruising Past Medical History - SOCIAL HISTORY Smoking Status: Current every day smoker - RESPIRATORY Hx Respiratory Disorders: Yes Hx Bronchitis: Yes (had bronchitis Feb 2014-better now) - CARDIOVASCULAR Hx Cardio Disorders: No - NEURO Hx Neuro Disorders: No - GI Hx GI Disorders: Yes Hx Abdominal Pain: Yes (occasional, a"2-3 all the time") Hx Reflux: Yes Hx Nausea/Vomiting: Yes Hx Pancreatitis: Yes (last pancreatitis jan 2015) - Hx Genitourinary Disorders: Yes Comment:: testicular CA - ENDOCRINE Hx Endocrine Disorders: No - MUSCULOSKELETAL Hx Musculoskeletal Disorders: Yes - PSYCH Hx Psych Problems: Yes Hx Anxiety: Yes Hx Depression: Yes Comment:: pt denies depression at this time - HEMATOLOGY/ONCOLOGY Hx Hematology/Oncology Disorders: Yes Hx Cancer: Yes (right testicle) Hx Chemotherapy: No Hx Radiation Therapy: No Family Medical History Family Hx Comment (NOT TO BE USED IN PLACE OF ITEMS BELOW): mother of lung CA Hx Cancer: Mother Hx Dementia: Father Hx Depression: Father Hx Heart Disease: Grandparents Hx HTN: Grandparents Hx Stroke: Father Physical Exam - General General Appearance: Alert, Oriented x3, Cooperative, No acute distress (The patient is quite cachetic and very thin. He weighs about 80 lbs and states he is 5'9" tall.) - Head Head exam: Atraumatic, Normocephalic - Eye Eye exam: Normal appearance, PERRL - ENT Throat exam: Normal inspection. negative: Tonsillar erythema, Tonsillar exudate - Neck Neck exam: Normal inspection, Full ROM. negative: Tenderness - Respiratory Respiratory exam: Decreased breath sounds. negative: Normal lung sounds bilaterally, Respiratory distress, Rhonchi, Stridor, Wheezes - Cardiovascular Cardiovascular Exam: Regular rate, Normal rhythm, Normal heart sounds - GI/Abdominal GI/Abdominal exam: Soft, Tenderness (suprapubic.). negative: Rebound, Rigid - Extremities Extremities exam: Other (The patient has superficial bed sores to the backs of the elbows and to the thoracic spine area.). negative: Normal inspection (The patient's extremities are very thin and cachetic. The lower legs are mildly edematous and there appears to be early gangrene on the L big toe.), Joint swelling, Tenderness - Back Back exam: Reports: Other (Superficial bed sores around the spine.). Denies: Normal inspection - Neurological Neurological exam: Alert, Oriented X3. negative: Altered, Motor sensory deficit - Skin Skin exam: negative: Rash Course - Reevaluation(s) Reevaluation #1: The patient is resting comfortably. Due to the extensive cachexia and weakness I do feel the patient will need inpatient evaluation. I did call his PCP Dr. Evans and he would like the patient to be tranferred to [facility] for evaluation. I did then discuss the case with Dr. Diez at [facility] and he did accept the patient in transfer. He would like a chest abdomen pelvis CT performed prior to transfer. 01/18/19 18:33 Reevaluation #2: The patient did have a Wong Catheter placed with 700 mls of urine return. 01/18/19 18:38 Reevaluation #3: The patient is accepted at [facility] by Dr. Diez and will get the Chest/ABD/Pelvis CT here prior to transfer. The patient's care until transfer will be followed by Dr. Stephens due to shift change. 01/18/19 18:51 Medical Decision Making - Data Complexity MDM Data: Labs Ordered and/or Reviewed - Lab Data Result diagrams: 01/18/19 17:15 01/18/19 17:15 Disposition Disposition: Transfer Clinical Impression: Malnutrition due to starvation COPD (chronic obstructive pulmonary disease) Qualifiers: COPD type: unspecified COPD Qualified Code(s): J44.9 - Chronic obstructive pulmonary disease, unspecified Disposition: Acute Care Hospital Transfer Transfer To: [facility] Reason For Transfer: GI Accepting Physician: Chary. Time Discussed w/Accepting Physician: 18:39 Condition: (2) Stable Time of Disposition: 18:39 Quality - Quality Measures Quality Measures: N/A - Blood Pressure Screening View Details: Yes Does Patient Have Any of the Following: No Blood Pressure Classification: Normal BP Reading Systolic Measurement: 110 Diastolic Measurement: 74 Screening for High Blood Pressure: < Normal BP, F/U Not Required > [G8783]
[2019-01-18] MEDS ORDERED: 0.9 % SODIUM CHLORIDE 1,000 ML BAG IV ONE (17:50)
[2019-01-18 17:58] LABS: HEMATOCRIT 41.6 % (42.0-52.0); HEMOGLOBIN 14.1 gm/dl (14.0-18.0); MEAN CORPUSCULAR HGB CONC 33.9 g/dl (32-36); MEAN PLATELET VOLUME 8.5 fl (7.4-10.4); PLATELET COUNT 232 K/uL (130-400); RED CELL DISTRIBUTION WIDTH 14.8 % (11.5-14.5); URINE APPEARANCE CLEAR; URINE BILIRUBIN NEGATIVE (NEGATIVE); URINE BLOOD NEGATIVE (NEGATIVE); URINE COLOR YELLOW; URINE GLUCOSE (UA) NEGATIVE (NEGATIVE); URINE KETONE NEGATIVE (NEGATIVE); URINE LEUKOCYTE ESTERASE NEGATIVE (NEGATIVE); URINE NITRITE NEGATIVE (NEGATIVE); URINE PROTEIN NEGATIVE (NEGATIVE); URINE UROBILINOGEN 0.2 E.U./dL (0.20 - 1.00); WHITE BLOOD COUNT W/O DIFF 9.8 K/uL (4.2-12.2)
[2019-01-18 17:59] LABS: MEAN CORPUSCULAR HEMOGLOBIN 35.2 pg (27-33)
[2019-01-18 18:08] LABS: BLOOD UREA NITROGEN 11 mg/dL (8-23); CREATININE 0.2 mg/dL (0.7-1.2); EST GLOMERULAR FILTRATION RATE > 60 mL/min
[2019-01-18 18:10] LABS: TOTAL PROTEIN 5.9 g/dL (6.6-8.7)
[2019-01-18 18:11] LABS: GLUCOSE,RANDOM 89 mg/dL (74-109)
[2019-01-18 18:15] LABS: ALKALINE PHOSPHATASE 130 U/L (40-129); ALT/SGPT 37 U/L (<41); AST/SGOT 30 U/L (10.0-50.0); BILIRUBIN,DIRECT < 0.2 mg/dL (0-0.3)
[2019-01-18] MEDS ORDERED: ONDANSETRON HCL IV 4 MG/2 ML VIAL IVP ONE (18:36)
[2019-01-18] MEDS ORDERED: 0.9 % SODIUM CHLORIDE 500ML 500 ML IV ONE (18:48)
--- NOTE | 2019-01-18 21:15 | CT SCAN REPORT ---
EXAMINATION: CT Chest, Abdomen, and Pelvis with Contrast EXAM DATE: 01/18/2019 8:52 PM TECHNIQUE: Spiral CT images were done from lung apices through the pelvis after injection of intraven ous contrast. Coronal and sagittal 2-D reconstructions were made from source images. IV Contrast: The type and amount of contrast are recorded in the medical record. INDICATION: cough and abdominal pain COMPARISON: 03/07/2015. FINDINGS: Chest: Emphysema is noted. There is bibasilar peribronchial thickening and nodular infiltrates. Mucous plugg ing is also noted. This is in a predominantly dependent location, and clinical correlation for aspira tion is recommended. Generalized lack of body fat again noted. No mediastinal or hilar lymphadenopathy. There are small bi lateral pleural effusions. There is an age indeterminant superior endplate compression fracture of T11. Abdomen: The liver, spleen, adrenals, and kidneys are unremarkable. Postsurgical change again noted involving the pancreas and bowel. Pneumobilia again noted. No free fluid or free air. No lymphadenopathy. Pelvis: Wong catheter in the bladder. The pelvic organs are otherwise unremarkable. No free fluid or free ai r. No definite inflammatory change. There is prominent stool in the rectum, correlate clinically for constipation. IMPRESSION: 1. Bibasilar infiltrates, peribronchial thickening, and mucous plugging. Correlate clinically for his tory of aspiration. 2. Emphysema. 3. Age indeterminant T11 compression fracture. 4. Prominent stool in the rectum, correlate clinically for constipation. 5. Small bilateral pleural effusions. 6. Generalized lack of body fat limits evaluation. Dictated by: Arslan Jackson MD on 01/18/2019 8:58 PM. .
== END 2019-01-18 22:19 | disposition short-term general hospital (02) ==
LOC: ER 17:16
DX: E46 Unspecified protein-calorie malnutrition (principal); T73.0XXA Starvation, initial encounter; R64 Cachexia; R34 Anuria and oliguria; J44.9 Chronic obstructive pulmonary disease, unspecified; R53.1 Weakness; L89.109 Pressure ulcer of unspecified part of back, unspecified stage; L89.029 Pressure ulcer of left elbow, unspecified stage; L89.019 Pressure ulcer of right elbow, unspecified stage; R10.30 Lower abdominal pain, unspecified; F17.210 Nicotine dependence, cigarettes, uncomplicated; X58.XXXA Exposure to other specified factors, initial encounter
CPT/HCPCS: 71260; 74177; 80048; 80076; 81003; 85027; 96360; 96361; 99285; J2405; J7040